=== PATIENT | male | born 1970 | race Caucasian/White ===

== ENCOUNTER 2019-12-06 16:15 | Inpatient (IN) ==
[2019-12-06] MEDS ORDERED: SODIUM CHLORIDE 0.9% 1000ML 1,000 ML IV ONE (17:02)
[2019-12-06] MEDS ORDERED: ONDANSETRON INJ 2 MG/ML 2 ML VIAL IV STA (17:04)
--- NOTE | 2019-12-06 17:09 | Emergency Department Note ---
ED Visit Note I assisted Dr. Rhodes in the care of this patient. Please see attending attestation. Sven Marie DO Resident, Family & Community Medicine, [facility] . Resident Activity Tracking Resident Involvement: Resident Care Provided Care Provided: Adult ED
[2019-12-06] MEDS ORDERED: CYCLOBENZAPRINE HCL 10 MG TAB PO STA (17:10)
[2019-12-06] MEDS ORDERED: LIDOCAINE 4% INH SOLN 4 ML BTL ONE (17:15)
--- NOTE | 2019-12-06 17:17 | Emergency Department Note ---
History of Present Illness General Chief complaint: Urinary Symptoms Stated complaint: POSSIBLE UTI, STOMACH CRAMPS, NAUSEA Time Seen by Provider: 12/06/19 16:45 Source: patient Mode of arrival: wheelchair Limitations: physical limitation History of Present Illness Maximum Pain Intensity: 4 This is a 49-year-old male who presents to the ED with a chief complaint of bloody possible urinary tract infection. 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 He does self-catheterization because of a neurogenic bladder related to his spinal cord injury. The patient states that he has experienced over the past couple of days some spasm in his abdomen and his urine appears darker than usual. He also reports an episode of vomiting and diarrhea this morning. The patient states that the last time he had a UTI, his abdomen was spasming. He states that he was given morphine and this constipated him for a long time. He is requesting something for muscle spasm. The patient has no other complaints at this time. The patient does report his last normal bowel movement was on Tuesday. He states that this is normal for him. Denies issues with constipation. Home Medications Home Medications Medication Instructions Recorded Confirmed Type bisacodyl [Dulcolax (bisacodyl)] 5 mg PO DAILY PRN 04/07/18 12/06/19 History calcium polycarbophil [FiberCon] 1,250 mg PO BID 04/07/18 12/06/19 History multivitamin 1 tab PO DAILY 04/07/18 12/06/19 History sennosides-docusate sodium [Senna 2 tab PO BID 07/14/18 12/06/19 History with Docusate Sodium] apixaban 5 mg tablet 5 mg PO BID #180 tab 06/25/19 12/06/19 Rx oxybutynin chloride 10 mg 10 mg PO BID #180 tab 12/04/19 12/06/19 Rx tablet,extended release 24 hr baclofen 20 mg PO BID 12/06/19 12/06/19 History Allergies Allergy/AdvReac Type Severity Reaction Status Date / Time Sulfa (Sulfonamide Allergy Mild Unknown Verified 12/06/19 18:05 Antibiotics) Past Med/Surg History Medical History BILL (acute kidney injury) (Resolved) Constipation (Resolved) Ground glass opacity present on imaging of lung (Chronic) History of DVT (deep vein thrombosis) (Chronic) Muscle spasm (Chronic) Neurogenic bladder (Chronic) Paraplegia (Chronic) Peripheral vascular disease (Chronic) SBO (small bowel obstruction) (Resolved) Sepsis (Resolved) Stage II pressure ulcer of buttock (Resolved) T5 spinal cord injury (Chronic) UTI (urinary tract infection) (Chronic) UTI (urinary tract infection) (Resolved) Surgical History History of back surgery Family History Other Medical history non-contributory Social History Preferred Language: Hebrew Communication Ability: Effective Visual Impairment: No Limitations Jacket Changer Required: No Beliefs That Will Affect Care: None marital status: Single Current Living Situation: Alone current occupational status: disabled Feels Safe at Home: Yes Smoking Status: Former smoker Tobacco Type: smokeless tobacco ; Cigarettes Per Day: 20 ; Second Hand Exposure: No ; Hx Alcohol Use: No Hx Substance Use: No Review of Systems A total of 10 systems reviewed and were otherwise negative Physical Exam Vital Signs: Vital Signs - 24 hr 12/06/19 16:20 12/06/19 18:20 Temperature 36.7 C Temperature Source Oral Pulse Rate 119 H Pulse Rate [Apical ] 90 Respiratory Rate 18 18 Respiratory Effort / Characteristics Non-Labored Sponta neous Respiratory Depth Normal Blood Pressure 100/73 Blood Pressure [Le ft Arm] 112/76 Blood Pressure Noni n 82 Blood Pressure Noni n [Left Arm] 88 Blood Pressure Pos ition Sitting Pulse Oximetry 97 98 Oxygen Delivery Me thod Room Air Room Air Sepsis Recent Feve r Within 48 Hours No Sepsis New/Unexpla ined Change in Men evon Status No Sepsis Action Take n by Nursing No Action Required Physical Exam: CONSTITUTIONAL/VITAL SIGNS: Reviewed / noted above. GENERAL: Non-toxic in appearance. INTEGUMENTARY: Warm, dry, and [place]. HEAD: Normocephalic. EYES: without scleral icterus or trauma. ENT/OROPHARYNX: clear and moist. LYMPHADENOPATHY/NECK: Is supple without lymphadenopathy or meningismus. RESPIRATORY: Lungs clear and equal. CARDIOVASCULAR: Regular rate and rhythm. GI/ABDOMEN: Soft, slightly distended and nontender. No organomegaly or pulsatile mass. No rebound or guarding. Normal bowel sounds. EXTREMITIES: Warm and well perfused. BACK: No CVA tenderness. NEUROLOGICAL: Intact without focal deficits. Chronic paraplegia. PSYCHIATRIC: normal affect. MUSCULOSKELETAL: Normally developed with good muscle tone. TRIAGE NURSING DOCUMENTATION REVIEWED. Course Administered Medications Ioversol (Optiray 320 100ml) 91 ml IV ONCE PRN PRN Reason: Interaction Checking Stop: 12/10/19 18:22 Last Admin: 12/06/19 18:23 Dose: 91 ml Documented by: [id number] Discontinued Medications Cyclobenzaprine HCl (Flexeril) 5 mg PO NOW STA Stop: 12/06/19 17:11 Last Admin: 12/06/19 17:31 Dose: 5 mg Documented by: [id number] Sodium Chloride (Nss 1000ml) 1,000 mls @ 999 mls/hr IV .Q1H1M ONE Stop: 12/06/19 18:02 Last Infusion: 12/06/19 18:35 Dose: 0 mls/hr Documented by: [id number] Admin: 12/06/19 17:31 Dose: 999 mls/hr Documented by: [id number] Ceftriaxone Sodium (Rocephin) 1,000 mg in 50 mls @ 100 mls/hr IV NOW STA Stop: 12/06/19 19:04 Last Admin: 12/06/19 18:39 Dose: 100 mls/hr Documented by: [id number] Ondansetron HCl (Zofran) 4 mg IV NOW STA Stop: 12/06/19 17:05 Last Admin: 12/06/19 17:31 Dose: 4 mg Documented by: [id number] Medical Decision Making Differential Diagnosis Differential considered: pancreatitis, hepatitis, acute cholecystitis, AAA, UTI, pyelonephritis, kidney stones, appendicitis, diverticulitis, shingles, bowel obstruction, mesenteric ischemia, intussusception,hernia, testicular torsion. Medical Records Attestation: I reviewed the patient's medical records. Home Medications Current Medication List: was personally reviewed by me Laboratory Data Attestation: I reviewed the patient's lab results. Result diagrams: 12/06/19 17:15 12/06/19 17:15 Lab Results 12/06/19 12/06/19 12/06/19 Range/Units 17:15 17:15 17:16 WBC 10.41 (4.8-10.8) K/uL RBC 4.69 L (4.7-6.1) M/uL Hgb 14.1 (14.0-18.0) g/dL Hct 39.1 L (42-52) % MCV 83.4 (80-100) fL MCH 30.1 (25-34) pg MCHC 36.1 H (32-36) g/dL RDW Std Deviation 41.4 (36.4-46.3) fL RDW Coeff of Shanice 13.7 (11.5-14.5) % Plt Count 242 (130-400) K/uL MPV 9.4 (7.4-10.4) fL Immature Gran % (Auto) 0.2 % Neut % (Auto) 82.1 % Lymph % (Auto) 11.9 % [place] % (Auto) 5.4 % Eos % (Auto) 0.3 % Baso % (Auto) 0.1 % Immature Gran # (Auto) 0.02 (0.00-0.02) K/uL Neut # (Auto) 8.55 H (1.4-6.5) K/uL Lymph # (Auto) 1.24 (1.2-3.4) K/uL [place] # (Auto) 0.56 (0.11-0.59) K/uL Eos # (Auto) 0.03 (0-0.5) K/uL Baso # (Auto) 0.01 (0-0.2) K/uL Sodium 136 (136-145) mmol/L Potassium 4.2 (3.5-5.1) mmol/L Chloride 98 (98-107) mmol/L Carbon Dioxide 31 (21-32) mmol/L Anion Gap 7.0 (3-11) BUN 20 H (7-18) mg/dl Creatinine 0.94 (0.6-1.4) mg/dl Est Cr Clr Drug Dosing Not Reportable Est GFR ( Amer) 108.4 Est GFR (Non-Af Amer) 93.5 BUN/Creatinine Ratio 21.7 H (10-20) Glucose 104 H (70-99) mg/dl Calcium 9.8 (8.5-10.1) mg/dl Total Bilirubin 1.3 H (0.2-1) mg/dl AST 17 (15-37) U/L ALT 26 (12-78) U/L Alkaline Phosphatase 76 (45-117) U/L Total Protein 7.9 (6.4-8.2) gm/dl Albumin 3.9 (3.4-5.0) gm/dl Globulin 4.0 (2.5-4.0) gm/dl Albumin/Globulin Ratio 1.0 (0.9-2) Urine Color Dark Yellow Urine Appearance Clear (Clear) Urine pH 5.5 (4.5-7.5) Ur Specific [place] 1.014 (1.000-1.030) Urine Protein Negative (Negative) Urine Glucose (UA) Negative (Negative) Urine Ketones Negative (Negative) Urine Blood 2+ H (Negative) Urine Nitrite Negative (Negative) Urine Bilirubin Negative (Negative) Urine Urobilinogen Negative (Negative) Ur Leukocyte Esterase 1+ H (Negative) Urine WBC (Auto) 10-30 H (0-5) /hpf Urine RBC (Auto) 5-10 H (0-4) /hpf U Hyaline Cast (Auto) 5-10 H (0-5) /lpf U Epithel Cells (Auto) 10-20 H (0-5) /lpf Urine Bacteria (Auto) Negative (Negative) Imaging Data Radiologist's Impression: CT scan of the abdomen and pelvis: IMPRESSION: 1. Dilated fluid-filled loops of small bowel throughout the abdomen and pelvis with transition point noted involving the distal ileum just proximal to the ileocecal valve is compatible with a least a partial small bowel obstruction likely secondary to small bowel adhesions or possibly a small internal hernia. 2. No pneumatosis or pneumoperitoneum. 3. Prostamegaly with urinary bladder wall thickening suggestive of chronic bladder outlet obstruction. Correlate with urinalysis to exclude cystitis. 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 Blood Pressure Blood Pressure Findings: Normal blood pressure MDM Narrative This is a 49-year-old male who presents to the ED with a chief complaint of bloody possible urinary tract infection. 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 He does self-catheterization because of a neurogenic bladder related to his spinal cord injury. The patient states that he has experienced over the past couple of days some spasm in his abdomen and his urine appears darker than usual. He also reports an episode of vomiting and diarrhea this morning. The patient states that the last time he had a UTI, his abdomen was spasming. He states that he was given morphine and this constipated him for a long time. He is requesting something for muscle spasm. The patient has no other complaints at this time. The patient does report his last normal bowel movement was on Tuesday. He states that this is normal for him. Denies issues with constipation. The patient's vital signs reveal tachycardia. His exam reveals a slightly distended abdomen. He is chronically paraplegic. He is in no distress. The patient's urine appears equivocal. He was empirically treated with IV Rocephin pending cultures. The patient's CBC and chemistry panel was unremarkable. A CT scan of the abdomen was performed reveals a partial small bowel obstruction likely related to some adhesions. There may also be an internal hernia. Because of the patient's symptoms, the patient will be seen by the hospitalist service for further inpatient evaluation and care. The patient was treated with IV Rocephin, p.o. cyclobenzaprine, IV Zofran and IV fluids. Prescription for antibiotics, pending culture. Impression & Plan SBO (small bowel obstruction) Discharge Plan Visit Data Chief Complaint: Urinary Symptoms Stated Complaint: POSSIBLE UTI, STOMACH CRAMPS, NAUSEA ED Provider: Jose Rhodes ED Midlevel Provider: Sven Marie Discharge Problem: SBO (small bowel obstruction) Patient Disposition: Being Evaluated by Hospitalist Forms Stand Alone Forms: [facility] Prescriptions Prescriptions: No Action Eliquis 5 mg tablet 5 mg PO BID Qty: 180 RF: 1 oxybutynin chloride 10 mg tablet extended release 24hr 10 mg PO BID Qty: 180 RF: 1 multivitamin Tablet 1 tab PO DAILY RF: 0 calcium polycarbophil [FiberCon] 625 mg Tablet 1,250 mg PO BID RF: 0 bisacodyl [Dulcolax (bisacodyl)] 5 mg Tablet,Delayed Release (Dr/Ec) 5 mg PO DAILY PRN (Reason: Constipation) RF: 0 sennosides-docusate sodium [Senna with Docusate Sodium] 8.6-50 mg Tablet 2 tab PO BID RF: 0 baclofen 20 mg tablet 20 mg PO BID RF: 0 Referrals Referrals: Viki Alvarado DO [Primary Care Provider] -
[2019-12-06 17:24] LABS: Basophils # (auto) 0.01 K/uL (0-0.2); Basophils % (auto) 0.1 %; Eosinophils # (auto) 0.03 K/uL (0-0.5); Eosinophils % (auto) 0.3 %; Hematocrit (blood only) 39.1 % (42-52); Hemoglobin 14.1 g/dL (14.0-18.0); Immature Granulocytes # (auto) 0.02 K/uL (0.00-0.02); Immature Granulocytes % (auto) 0.2 %; Lymphocytes # (auto) 1.24 K/uL (1.2-3.4); Lymphocytes % (auto) 11.9 %; Mean Corpuscular Hemoglobin 30.1 pg (25-34); Mean Corpuscular Hgb Conc 36.1 g/dL (32-36); Mean Corpuscular Volume 83.4 fL (80-100); Mean Platelet Volume 9.4 fL (7.4-10.4); Monocytes # (auto) 0.56 K/uL (0.11-0.59); Monocytes % (auto) 5.4 %; Neutrophils # (auto) 8.55 K/uL (1.4-6.5); Neutrophils % (auto) 82.1 %; Platelet Count 242 K/uL (130-400); RDW Coefficient of Variation 13.7 % (11.5-14.5); RDW Standard Deviation 41.4 fL (36.4-46.3); Red Blood Count 4.69 M/uL (4.7-6.1); White Blood Count 10.41 K/uL (4.8-10.8)
[2019-12-06 17:40] LABS: Appearance Urine Clear (Clear); Bacteria Urine Automated Negative (Negative); Bilirubin Urine Negative (Negative); Blood Urine 2+ (Negative); Color Urine Dark Yellow; Glucose Urine UA Negative (Negative); Ketones Urine Negative (Negative); Leukocyte Esterase Urine 1+ (Negative); Nitrite Urine Negative (Negative); Protein Urine Negative (Negative); Specific Gravity Urine 1.014 (1.000-1.030); Urobilinogen Urine Negative (Negative); pH Urine 5.5 (4.5-7.5)
[2019-12-06 17:42] LABS: Alanine Aminotransferase 26 U/L (12-78); Albumin Level 3.9 gm/dl (3.4-5.0); Aspartate Aminotransferase 17 U/L (15-37); BUN Creatinine Ratio 21.7 (10-20); Blood Urea Nitrogen 20 mg/dl (7-18); Calcium 9.8 mg/dl (8.5-10.1); Carbon Dioxide 31 mmol/L (21-32); Chloride 98 mmol/L (98-107); Est GFR (African American) 108.4; Est GFR (Non-African American) 93.5; Glucose 104 mg/dl (70-99); Potassium 4.2 mmol/L (3.5-5.1); Sodium 136 mmol/L (136-145)
[2019-12-06 17:44] LABS: Alkaline Phosphatase 76 U/L (45-117); Bilirubin,Total 1.3 mg/dl (0.2-1); Total Protein 7.9 gm/dl (6.4-8.2)
[2019-12-06] MEDS ORDERED: IOVERSOL 100ml IV PRN (18:23)
[2019-12-06] MEDS ORDERED: cefTRIAXone SODIUM 1,000 MG/50 ML BAG IV STA (18:35)
--- NOTE | 2019-12-06 18:57 | CT Scan Report ---
ABDOMEN AND PELVIS CT WITH IV CONTRAST CT DOSE: 313.87 mGy.cm HISTORY: Acute generalized abdominal pain with distention abd pain/distention TECHNIQUE: Multiaxial CT images of the abdomen and pelvis were performed following the IV administrat ion of 91 cc of Optiray 320, A dose lowering technique was utilized adhering to the principles of [place]. COMPARISON STUDY: CT abdomen and pelvis 06/03/2018 FINDINGS: Clear lung bases. No pneumatosis or pneumoperitoneum identified. Imaged inferior cardiac chambers are unremarkable. Spleen measures the upper limits of normal in size at 13 cm. The pancreas and adrenal glands are unremarkable. Contracted gallbladder. Unremarkable appearance of the liver. Patency of the hepatic and portal veins. 7 mm hypodensity of the inferior pole left kidney is too small to characte rize however suggests probable cyst. No ureteral calculi or obstructive uropathy. Mild to moderate wa ll thickening of the bladder with partial distention. 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 Prostate is mildly enlarged. Aort a is unremarkable. Infrarenal IVC filter. No adenopathy. Hyperdense foci layering within the stomach are suggestive of pills fragments. Mild to moderate gastr ic distention with air-fluid level. Additional scattered air-fluid levels are noted throughout the sm all bowel with mild small bowel dilation measuring up to 3.3 cm. Transition point is noted within the terminal ileum with focal narrowing and mild twisting of the ileum seen on image 340 series 3 just p roximal to the ileocecal valve. Wall thickening with partial distention of the sigmoid colon. There i s trace nonspecific free fluid within the dependent pelvis. The majority of the large bowel is partia lly decompressed. Mild fecal retention. The appendix is not definitively seen. Soft tissues are unrem arkable. Demineralized appearance of the bones. No suspicious bone lesions. Partially imaged thoracic spinal fusion hardware. IMPRESSION: 1. Dilated fluid-filled loops of small bowel throughout the abdomen and pelvis with transition point noted involving the distal ileum just proximal to the ileocecal valve is compatible with a least a pa rtial small bowel obstruction likely secondary to small bowel adhesions or possibly a small internal hernia. 2. No pneumatosis or pneumoperitoneum. 3. Prostamegaly with urinary bladder wall thickening suggestive of chronic bladder outlet obstruction . Correlate with urinalysis to exclude cystitis. 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 4. Additional findings as above. ACT 112: Negative or not required by law. The above report was generated using voice recognition software. It may contain grammatical, syntax o r spelling errors. Electronically signed by: Mitchell Gregg M.D. 12/06/2019 6:56 PM
--- NOTE | 2019-12-06 20:44 | History & Physical Report ---
Date of Service December 06, 2019 Assessment & Plan (1) SBO (small bowel obstruction): Peyman Nolan is a 49y/o M w/ PMH with PMH of T5 paralysis, neurogenic bladder; who presented to the ED with a chief complaint of bloody possible urinary tract infection. Small bowel obstruction: - CT abd/pelvis: 1. Dilated fluid-filled loops of small bowel throughout the abdomen and pelvis with transition point noted involving the distal ileum just proximal to the ileocecal valve is compatible with a least a partial small bowel obstruction likely secondary to small bowel adhesions or possibly a small internal hernia. 2. No pneumatosis or pneumoperitoneum. 3. Prostamegaly with urinary bladder wall thickening suggestive of chronic bladder outlet obstruction. Correlate with urinalysis to exclude cystitis. 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 4. Additional findings as above. - will make NPO for bowel rest - failed NG placement in ED, consider re-attempting in AM if no improvement in symptoms - continue Cefepime for potential gastroenteritis complication Urinary tract infection: - Urinalysis unimpressive: demonstrated 2+ blood, 1+ Leuk Est, negative nitrites, negative bacteria Neurogenic bladder: - will hold home oral medications at this time - joseph catheter placed Diet: NPO DVT ppx: Lovenox SQ Code: DNR/DNI (2) UTI (urinary tract infection): (3) Neurogenic bladder: History of Present Illness Primary Care Provider: Viki Alvarado DO Peyman Nolan is a 49y/o M w/ PMH with PMH of T5 paralysis, neurogenic bladder; who presented to the ED with a chief complaint of bloody possible urinary tract infection. He does self-catheterization because of a neurogenic bladder related to his spinal cord injury. The patient states that he has experienced over the past couple of days some spasm/tightness in his abdomen and his urine appears darker than usual. Over this time he has had two episodes of nausea and vomiting, and as a result has reduced the amount that he has eaten since Tuesday. Denies abdominal pain as he does not have sensation below his chest. Last bowel movement was three days ago, which he has had sporadically since he was paralyzed. Denies fever, chills, cough, and shortness of breath. Allergies Allergy/AdvReac Type Severity Reaction Status Date / Time Sulfa (Sulfonamide Allergy Mild Unknown Verified 12/06/19 18:05 Antibiotics) Home Medications Home Medications Medication Instructions Recorded Confirmed Type bisacodyl [Dulcolax (bisacodyl)] 5 mg PO DAILY PRN 04/07/18 12/06/19 History calcium polycarbophil [FiberCon] 1,250 mg PO BID 04/07/18 12/06/19 History multivitamin 1 tab PO DAILY 04/07/18 12/06/19 History sennosides-docusate sodium [Senna 2 tab PO BID 07/14/18 12/06/19 History with Docusate Sodium] apixaban 5 mg tablet 5 mg PO BID #180 tab 06/25/19 12/06/19 Rx oxybutynin chloride 10 mg 10 mg PO BID #180 tab 12/04/19 12/06/19 Rx tablet,extended release 24 hr baclofen 20 mg PO BID 12/06/19 12/06/19 History Past Med/Surg History Medical History BILL (acute kidney injury) (Resolved) Constipation (Resolved) Ground glass opacity present on imaging of lung (Chronic) History of DVT (deep vein thrombosis) (Chronic) Muscle spasm (Chronic) Neurogenic bladder (Chronic) Paraplegia (Chronic) Peripheral vascular disease (Chronic) SBO (small bowel obstruction) (Resolved) Sepsis (Resolved) Stage II pressure ulcer of buttock (Resolved) T5 spinal cord injury (Chronic) UTI (urinary tract infection) (Chronic) UTI (urinary tract infection) (Resolved) Surgical History History of back surgery Family History Other Medical history non-contributory Social History Preferred Language: Telugu Communication Ability: Effective Visual Impairment: No 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 Beliefs That Will Affect Care: None marital status: Single Current Living Situation: Alone current occupational status: disabled Other Information That Helps Us Care for You: No Feels Safe at Home: Yes Safety Concerns: Feels Safe At This Time Smoking Status: Never smoker Tobacco Type: smokeless tobacco ; Cigarettes Per Day: 20 ; Do You Dip or Chew Tobacco: Yes ; Second Hand Exposure: No ; Tobacco Cessation Education Requested by Patient: No Hx Alcohol Use: No Hx Substance Use: No Review of Systems Review of Systems: All systems reviewed & are unremarkable except as noted in HPI & below Physical Exam Constitutional: WD/WN, vitals as above Eyes: PERRL, conjunctivae normal, anicteric sclerae ENMT: external ear and nose normal, oropharynx normal Neck: normal visual inspection Respiratory: normal respiratory effort, lungs clear to auscultation Cardiovascular: Rate/Rhythm: regular rate and regular rhythm Heart Sounds: normal S1 and normal S2; no gallop, no murmur and no cardiac rub Vessels: no JVD Extremities: no edema Gastrointestinal (Abdomen): Inspection/Auscultation: abdomen not distended Percussion/Palpation: + abdomen tender and + guarding; abdomen not rigid Musculoskeletal: Extremities: no cyanosis and no clubbing Skin: no rashes, warm and dry Psychiatric: A+Ox3, euthymic affect Genitourinary: no CVA tenderness Lymphatic: no cervical or axillary lymphadenopathy Results & Data Results & Data ([facility]) Vital Signs (Past 12 Hours) Vital Signs Temp Pulse Pulse Resp BP BP Pulse Ox 12/06/19 18:20 90 18 112/76 98 12/06/19 16:20 36.7 C 119 H 18 100/73 97 Laboratory Results 12/06/19 12/06/19 12/06/19 Range/Units 17:16 17:15 17:15 WBC 10.41 (4.8-10.8) K/uL RBC 4.69 L (4.7-6.1) M/uL Hgb 14.1 (14.0-18.0) g/dL Hct 39.1 L (42-52) % MCV 83.4 (80-100) fL MCH 30.1 (25-34) pg MCHC 36.1 H (32-36) g/dL RDW Std Deviation 41.4 (36.4-46.3) fL RDW Coeff of Shanice 13.7 (11.5-14.5) % Plt Count 242 (130-400) K/uL MPV 9.4 (7.4-10.4) fL Immature Gran % (Auto) 0.2 % Neut % (Auto) 82.1 % Lymph % (Auto) 11.9 % [place] % (Auto) 5.4 % Eos % (Auto) 0.3 % Baso % (Auto) 0.1 % Immature Gran # (Auto) 0.02 (0.00-0.02) K/uL Neut # (Auto) 8.55 H (1.4-6.5) K/uL Lymph # (Auto) 1.24 (1.2-3.4) K/uL [place] # (Auto) 0.56 (0.11-0.59) K/uL Eos # (Auto) 0.03 (0-0.5) K/uL Baso # (Auto) 0.01 (0-0.2) K/uL Sodium 136 (136-145) mmol/L Potassium 4.2 (3.5-5.1) mmol/L Chloride 98 (98-107) mmol/L Carbon Dioxide 31 (21-32) mmol/L Anion Gap 7.0 (3-11) BUN 20 H (7-18) mg/dl Creatinine 0.94 (0.6-1.4) mg/dl Est Cr Clr Drug Dosing Not Reportable Est GFR ( Amer) 108.4 Est GFR (Non-Af Amer) 93.5 BUN/Creatinine Ratio 21.7 H (10-20) Glucose 104 H (70-99) mg/dl Calcium 9.8 (8.5-10.1) mg/dl Total Bilirubin 1.3 H (0.2-1) mg/dl AST 17 (15-37) U/L ALT 26 (12-78) U/L Alkaline Phosphatase 76 (45-117) U/L Total Protein 7.9 (6.4-8.2) gm/dl Albumin 3.9 (3.4-5.0) gm/dl Globulin 4.0 (2.5-4.0) gm/dl Albumin/Globulin Ratio 1.0 (0.9-2) Urine Color Dark Yellow Urine Appearance Clear (Clear) Urine pH 5.5 (4.5-7.5) Ur Specific [place] 1.014 (1.000-1.030) Urine Protein Negative (Negative) Urine Glucose (UA) Negative (Negative) Urine Ketones Negative (Negative) Urine Blood 2+ H (Negative) Urine Nitrite Negative (Negative) Urine Bilirubin Negative (Negative) Urine Urobilinogen Negative (Negative) Ur Leukocyte Esterase 1+ H (Negative) Urine WBC (Auto) 10-30 H (0-5) /hpf Urine RBC (Auto) 5-10 H (0-4) /hpf U Hyaline Cast (Auto) 5-10 H (0-5) /lpf U Epithel Cells (Auto) 10-20 H (0-5) /lpf Urine Bacteria (Auto) Negative (Negative) Medications Administered Current Inpatient Medications Ioversol (Optiray 320 100ml) 91 ml IV ONCE PRN PRN Reason: Interaction Checking Stop: 12/10/19 18:22 Last Admin: 12/06/19 18:23 Dose: 91 ml Documented by: Supervising Physician Co-Signing Physician Notes Attending addendum: I have physically seen this patient, have supervised the medical residents activities, and agree with the H&P unless as otherwise noted. Assessment and Plan: Partial small bowel obstruction- Full admission N.p.o. IV fluids Zofran 4 mg IV every 6 hours PRN. Famotidine 20 mg IV every 12 hours Cefepime 1 g IV every 8 hours Surgical consult BPH with bladder outlet obstruction/LUTS- Follow urine culture and sensitivity. Cefepime as noted above. IV fluids as noted above. Joseph catheter for now. Remainder of orders and notations as noted. Resident Activity Tracking Resident Involvement: Resident Care Provided Care Provided: Adult Hospital Medicine (1) UTI (urinary tract infection) Hematuria presence: with hematuria Urinary tract infection type: site unspecified Qualified Code(s): N39.0 - Urinary tract infection, site not specified; R31.9 - Hematuria, unspecified
--- NOTE | 2019-12-06 22:01 | XRay Report ---
KUB HISTORY: Status post placement of an enteric tube NG tube placement COMPARISON: CT abdomen and pelvis of same day FINDINGS: Multiple dilated loops of small bowel redemonstrated. No enteric tube is noted along the ex pected gastrointestinal tract. Indeterminate catheter projects over the lateral left chest. Lung fiel ds are clear. Posterior interbody kayla and screw fusion of the thoracic spine. No renal calculi. No u reteral calculi. No pneumoperitoneum or pneumatosis. No fracture. IMPRESSION: 1. No definite enteric tube identified. 2. A catheter is noted projecting over the lateral left chest. ACT 112: Negative or not required by law. The above report was generated using voice recognition software. It may contain grammatical, syntax o r spelling errors. Electronically signed by: Mitchell Gregg M.D. 12/06/2019 9:59 PM
[2019-12-06] MEDS ORDERED: ONDANSETRON INJ 2 MG/ML 2 ML VIAL IV PRN (22:07)
[2019-12-06] MEDS ORDERED: PATIENT'S HEIGHT AND WEIGHT NEEDED SCH (22:30)
[2019-12-07] MEDS ORDERED: LORazepam 0.25 MG/0.5 ML VIAL IV ONE (00:05)
[2019-12-07] MEDS: CEFEPIME 2,000 MG in SYRINGE 7.5 ML IV SCH ×2 (00:28→10:57)
[2019-12-07 07:36] LABS: Basophils # (auto) 0.01 K/uL (0-0.2); Basophils % (auto) 0.1 %; Eosinophils # (auto) 0.12 K/uL (0-0.5); Eosinophils % (auto) 1.8 %; Hematocrit (blood only) 34.1 % (42-52); Immature Granulocytes # (auto) 0.02 K/uL (0.00-0.02); Immature Granulocytes % (auto) 0.3 %; Lymphocytes # (auto) 1.28 K/uL (1.2-3.4); Lymphocytes % (auto) 18.9 %; Mean Corpuscular Hemoglobin 29.8 pg (25-34); Mean Corpuscular Hgb Conc 35.2 g/dL (32-36); Mean Corpuscular Volume 84.6 fL (80-100); Mean Platelet Volume 9.5 fL (7.4-10.4); Monocytes # (auto) 0.48 K/uL (0.11-0.59); Monocytes % (auto) 7.1 %; Neutrophils # (auto) 4.88 K/uL (1.4-6.5); Neutrophils % (auto) 71.8 %; Platelet Count 180 K/uL (130-400); RDW Coefficient of Variation 13.9 % (11.5-14.5); RDW Standard Deviation 43.2 fL (36.4-46.3); Red Blood Count 4.03 M/uL (4.7-6.1); White Blood Count 6.79 K/uL (4.8-10.8)
[2019-12-07] MEDS: ENOXAPARIN INJ 40 MG/0.4 ML SYR SQ SCH (08:07)
[2019-12-07 08:14] LABS: BUN Creatinine Ratio 22.7 (10-20); Calcium 8.8 mg/dl (8.5-10.1); Creatinine Clr Calc Pharmacy 114.7 ml/min; Est GFR (African American) 123.1; Est GFR (Non-African American) 106.2; Potassium 3.9 mmol/L (3.5-5.1)
[2019-12-07] MEDS: SODIUM CHLORIDE 0.9% 1000ML 1,000 ML IV SCH ×2 (08:40→20:04)
--- NOTE | 2019-12-07 13:28 | History & Physical Report ---
Date of Service December 07, 2019 Assessment & Plan (1) SBO (small bowel obstruction): 49 yr old male paraplegic with symptoms/ imaging again suggestive of small bowel obstruction vs ileus/ delayed transit. If develops further nausea/ vomiting, would recommend ng decompression. If not, bowel rest and IVF resuscitation. Once regains bowel function, OK to slowly advance diet. Given that this is his second episode (first 06/04), should avoid/ minimize constipating meds as much as feasibly possible. No need for surgical intervention currently. Will follow. Present on Admission?: Yes (2) Paraplegia: Admission and Anticipated Discharge Date Admission Date: December 06, 2019 History of Present Illness Chief Complaint: nausea and vomiting Primary Care Provider: Viki Alvarado, Asked to see this 49 yr old man with PMH of T5 paralysis, neurogenic bladder and prior history of SBO vs ileus in 05/2018 who presented to the ED with a chief complaint of bloody possible urinary tract infection. He does self- catheterization because of a neurogenic bladder related to his spinal cord injury. Over the past few days, has noticed some spasm/ tightness in abdomen, intermittent nausea, darker urine. Has not been eating as much since Tuesday. Had a bowel movement on Tuesday, a looser one Tuesday and another last night. Unclear if there was any substance to the stool last night. Does not have abdominal pain as has no sensation below T5. He is hungry and has not had any nausea in the last 1-2 days. In 05/2018, admitted with SBO on CT scan but clinical picture more c/w ileus. Seen by Dr. Tilley - AIME ultimately traveled to colon but did show markedly delayed transit. Did need a ng tube during that admission. Symptoms resolved conservatively. No prior abdominal operations. Allergies Allergy/AdvReac Type Severity Reaction Status Date / Time Sulfa (Sulfonamide Allergy Mild Unknown Verified 12/06/19 18:05 Antibiotics) Home Medications Home Medications Medication Instructions Recorded Confirmed Type bisacodyl [Dulcolax (bisacodyl)] 5 mg PO DAILY PRN 04/07/18 12/06/19 History calcium polycarbophil [FiberCon] 1,250 mg PO BID 04/07/18 12/06/19 History multivitamin 1 tab PO DAILY 04/07/18 12/06/19 History sennosides-docusate sodium [Senna 2 tab PO BID 07/14/18 12/06/19 History with Docusate Sodium] apixaban 5 mg tablet 5 mg PO BID #180 tab 06/25/19 12/06/19 Rx oxybutynin chloride 10 mg 10 mg PO BID #180 tab 12/04/19 12/06/19 Rx tablet,extended release 24 hr baclofen 20 mg PO BID 12/06/19 12/06/19 History Past Med/Surg History Medical History BILL (acute kidney injury) (Resolved) Constipation (Resolved) Ground glass opacity present on imaging of lung (Chronic) History of DVT (deep vein thrombosis) (Chronic) Muscle spasm (Chronic) Neurogenic bladder (Chronic) Paraplegia (Chronic) Peripheral vascular disease (Chronic) SBO (small bowel obstruction) (Resolved) Sepsis (Resolved) Stage II pressure ulcer of buttock (Resolved) T5 spinal cord injury (Chronic) UTI (urinary tract infection) (Chronic) UTI (urinary tract infection) (Resolved) Surgical History History of back surgery Family History Other Medical history non-contributory Social History Preferred Language: Italian Communication Ability: Effective Visual Impairment: No Limitations Publication Editor Required: No Beliefs That Will Affect Care: None marital status: Single Current Living Situation: Alone current occupational status: disabled Other Information That Helps Us Care for You: No Feels Safe at Home: Yes Safety Concerns: Feels Safe At This Time Smoking Status: Never smoker Tobacco Type: smokeless tobacco ; Cigarettes Per Day: 20 ; Do You Dip or Chew Tobacco: Yes ; Second Hand Exposure: No ; Tobacco Cessation Education Requested by Patient: No Hx Alcohol Use: No Hx Substance Use: No Review of Systems Review of Systems: All systems reviewed & are unremarkable except as noted in HPI & below Genitourinary: + problem reported (urine darker, some blood in it on self cath) Musculoskeletal: T5 paraplegic Physical Exam Constitutional: WD/WN, vitals as above Respiratory: normal respiratory effort, lungs clear to auscultation Cardiovascular: RRR, no murmur, no edema Gastrointestinal (Abdomen): Inspection/Auscultation: abdomen normal to inspection and normal bowel sounds; abdomen not distended Percussion/Palpation: abdomen soft; abdomen nontender no hernias or incisions Neurologic: T5 paraplegic Psychiatric: A+Ox3, euthymic affect Results & Data Results & Data ([facility]) Vital Signs (Past 12 Hours) Vital Signs Temp Pulse Resp BP Pulse Ox 12/07/19 07:16 36.7 C 86 16 125/73 98 Laboratory Results Abnormal lab results 12/06/19 12/06/19 12/06/19 Range/Units 17:15 17:15 17:16 RBC 4.69 L (4.7-6.1) M/uL Hgb (14.0-18.0) g/dL Hct 39.1 L (42-52) % MCHC 36.1 H (32-36) g/dL Neut # (Auto) 8.55 H (1.4-6.5) K/uL BUN 20 H (7-18) mg/dl BUN/Creatinine Ratio 21.7 H (10-20) Glucose 104 H (70-99) mg/dl Total Bilirubin 1.3 H (0.2-1) mg/dl Urine Blood 2+ H (Negative) Ur Leukocyte Esterase 1+ H (Negative) Urine WBC (Auto) 10-30 H (0-5) /hpf Urine RBC (Auto) 5-10 H (0-4) /hpf U Hyaline Cast (Auto) 5-10 H (0-5) /lpf U Epithel Cells (Auto) 10-20 H (0-5) /lpf 12/07/19 12/07/19 Range/Units 06:58 06:58 RBC 4.03 L (4.7-6.1) M/uL Hgb 12.0 L (14.0-18.0) g/dL Hct 34.1 L (42-52) % MCHC (32-36) g/dL Neut # (Auto) (1.4-6.5) K/uL BUN (7-18) mg/dl BUN/Creatinine Ratio 22.7 H (10-20) Glucose (70-99) mg/dl Total Bilirubin (0.2-1) mg/dl Urine Blood (Negative) Ur Leukocyte Esterase (Negative) Urine WBC (Auto) (0-5) /hpf Urine RBC (Auto) (0-4) /hpf U Hyaline Cast (Auto) (0-5) /lpf U Epithel Cells (Auto) (0-5) /lpf Diagnostic Findings FINDINGS: Clear lung bases. No pneumatosis or pneumoperitoneum identified. Imaged inferior cardiac chambers are unremarkable. Spleen measures the upper limits of normal in size at 13 cm. The pancreas and adrenal glands are unremarkable. Contracted gallbladder. Unremarkable appearance of the liver. Patency of the hepatic and portal veins. 7 mm hypodensity of the inferior pole left kidney is too small to characterize however suggests probable cyst. No ureteral calculi or obstructive uropathy. Mild to moderate wall thickening of the bladder with partial distention. 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 Prostate is mildly enlarged. Aorta is unremarkable. Infrarenal IVC filter. No adenopathy. Hyperdense foci layering within the stomach are suggestive of pills fragments. Mild to moderate gastric distention with air-fluid level. Additional scattered air-fluid levels are noted throughout the small bowel with mild small bowel dilation measuring up to 3.3 cm. Transition point is noted within the terminal ileum with focal narrowing and mild twisting of the ileum seen on image 340 series 3 just proximal to the ileocecal valve. Wall thickening with partial distention of the sigmoid colon. There is trace nonspecific free fluid within the dependent pelvis. The majority of the large bowel is partially decompressed. Mild fecal retention. The appendix is not definitively seen. Soft tissues are unremarkable. Demineralized appearance of the bones. No suspicious bone lesions. Partially imaged thoracic spinal fusion hardware. IMPRESSION: 1. Dilated fluid-filled loops of small bowel throughout the abdomen and pelvis with transition point noted involving the distal ileum just proximal to the ileocecal valve is compatible with a least a partial small bowel obstruction likely secondary to small bowel adhesions or possibly a small internal hernia. 2. No pneumatosis or pneumoperitoneum. 3. Prostamegaly with urinary bladder wall thickening suggestive of chronic bladder outlet obstruction. Correlate with urinalysis to exclude cystitis. 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 4. Additional findings as above.
--- NOTE | 2019-12-07 15:16 | Family Medicine Progress Note ---
Date of Service December 07, 2019 Assessment & Plan (1) SBO (small bowel obstruction): 49-year-old male was admitted on 06 Dec 2019 for SBO. Patients initial concern was for possible UTI. Small bowel obstruction: Patient c/o abdominal spasms in past couple days. Single episode N/V before admit. Last BM on 21May. CT a/p noted likely SBO secondary to small bowel adhesions or possibly a small internal hernia. Transition point at the distal ileum. Made NPO. Admit team attempted NGT wi thout success. Given flexeril x 1 for spasm. Has Zofran prn. - Seen by general surgery (see note). Plan for monitoring, awaiting return of bowel function, IVF for now. Try to avoid constipating meds. Neurogenic bladder, T5 spinal cord injury (2001), paraplegia: Does self-cath at home. Admit UA positive for WBC, RBC, casts, and Epis. Urine culture showed no growth. In ED, given single dose ceftriaxone. Admitted on cefepime. Jensen catheter placed. - No current evidence of an active infection, so stopped antibiotics. - Held home PO baclofen, dulcolax, Fibercon, oxybutynin, senna/docusate on admit while NPO. - Recommended he have follow-up with a urologist given his urinalysis findings of microscopic hematuria. This can be arranged through his primary care provider. Incidental CT a/p finding (can be evaluated as an outpatient): - Prostatomegaly. 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 - Possible left kidney cyst: 7 mm hypodensity. Ongoing medical issues: - Prior DVT: Had IVC filter placed around 2001. Held home apixiban 5 mg BID while NPO. --- Consider outpatient change to 2.5 mg BID dosing which would be the VTE prophylaxis dose. - Anemia: Admit Hb 12.0, MCV 84. Comparisons around 10-12. No evidence of acute bleeding. - PMH buttock pressure ulcer: Patient states not presently an issue. - Prior spinal fusion. Chronic groundglass opacity on lung imaging. Code status: DNR/DNI. Diet: NPO. On NS at 80 mL/hr. DVT prophy: On Lovenox 40 q day. Held home apixiban while NPO. PT/OT: Deferred. Disbo: Admitted to med surg. Lives at home alone. (2) Neurogenic bladder: (3) T5 spinal cord injury: (4) Paraplegia: (5) Enlarged prostate: (6) Left kidney mass: (7) History of DVT (deep vein thrombosis): (8) Anemia: Admission and Anticipated Discharge Date Admission Date: December 06, 2019 Supervising Physician Co-Signing Physician Notes I personally examined the patient and verified all camacho points of history and exam, discussed case, and agree with decision making with Dr. Pringle with the following additions/exceptions: Pt denied any nausea or vomiting for me, had a BM this AM. No longer having spasms of abdomen as before. Urine appears clearer than previously described. Pt also would like me to examine his scrotum as he has felt a small mobile ball- like structure that moves on both sides of scrotum for years and doesn't know what it is. Vitals reviewed NAD, AAOx3 Anicteric sclerae RRR no mgr CTAB no wcr ABd +BS soft NT, mild right sided distension, nonrigid Ext atrophy, flaccid SKin-multiple small abrasions/scratches on legs : testicles no masses, vas deferans palpated bilat and no masses, did palpate a very small 5 mm mobile rubbery mass in left hemiscrotum 49 yo male with T5 paraplegia, here with PSBO/ileus, N/V, UTI ruled out. -plan outlined as above -check pelvis xray for scrotal FB =continue fluids -observe with serial abdominal exams NGT if worsening distension or N/V Subjective Spoke with patient earlier this morning. Found him resting comfortably in bed. He recounted his HPI and stated that, although he has no physical feeling below T5, more with his hands he had the feeling that his abdomen was tense. He says that seem feeling remains this morning. Otherwise, he denies any interim nausea or vomiting since admission. No known recent fevers. Last bowel movement yesterday evening. Otherwise denies any particular concerns. - As background, patient says he had his IVC filter placed at the time of his initial accident around 2001. - Regarding his abnormal urinalysis, patient says he has never seen a urologist in the past. Review of Systems Review of Systems: Per HPI as above. Physical Exam Physical Exam: General Appearance: Awake, alert & oriented, comfortable in general, NAD. CV: +S1S2 RRR, no murmur. Pulm: Clear to auscultation throughout. Abdomen: +BS, soft, non-distended. Positive mild guarding. Jensen catheter in place. Extremities: There is some chronic bilateral lower extremity (shins distally) skin changes that do not appear infected. Neuro: T5 and distal paraplegia. No gross deficits in upper extremities. Results & Data ([facility]) Vital Signs (Past 12 Hours) Vital Signs Temp Pulse Resp BP Pulse Ox 12/07/19 07:16 36.7 C 86 16 125/73 98 Laboratory Results 12/07/19 12/07/19 12/06/19 Range/Units 06:58 06:58 17:16 WBC 6.79 (4.8-10.8) K/uL RBC 4.03 L (4.7-6.1) M/uL Hgb 12.0 L (14.0-18.0) g/dL Hct 34.1 L (42-52) % MCV 84.6 (80-100) fL MCH 29.8 (25-34) pg MCHC 35.2 (32-36) g/dL RDW Std Deviation 43.2 (36.4-46.3) fL RDW Coeff of Shanice 13.9 (11.5-14.5) % Plt Count 180 (130-400) K/uL MPV 9.5 (7.4-10.4) fL Immature Gran % (Auto) 0.3 % Neut % (Auto) 71.8 % Lymph % (Auto) 18.9 % [place] % (Auto) 7.1 % Eos % (Auto) 1.8 % Baso % (Auto) 0.1 % Immature Gran # (Auto) 0.02 (0.00-0.02) K/uL Neut # (Auto) 4.88 (1.4-6.5) K/uL Lymph # (Auto) 1.28 (1.2-3.4) K/uL [place] # (Auto) 0.48 (0.11-0.59) K/uL Eos # (Auto) 0.12 (0-0.5) K/uL Baso # (Auto) 0.01 (0-0.2) K/uL Sodium 139 (136-145) mmol/L Potassium 3.9 (3.5-5.1) mmol/L Chloride 106 (98-107) mmol/L Carbon Dioxide 25 (21-32) mmol/L Anion Gap 8.0 (3-11) BUN 17 (7-18) mg/dl Creatinine 0.75 (0.6-1.4) mg/dl Est Cr Clr Drug Dosing 114.7 Est GFR ( Amer) 123.1 Est GFR (Non-Af Amer) 106.2 BUN/Creatinine Ratio 22.7 H (10-20) Glucose 82 (70-99) mg/dl Calcium 8.8 (8.5-10.1) mg/dl Total Bilirubin (0.2-1) mg/dl AST (15-37) U/L ALT (12-78) U/L Alkaline Phosphatase (45-117) U/L Total Protein (6.4-8.2) gm/dl Albumin (3.4-5.0) gm/dl Globulin (2.5-4.0) gm/dl Albumin/Globulin Ratio (0.9-2) Urine Color Dark Yellow Urine Appearance Clear (Clear) Urine pH 5.5 (4.5-7.5) Ur Specific [place] 1.014 (1.000-1.030) Urine Protein Negative (Negative) Urine Glucose (UA) Negative (Negative) Urine Ketones Negative (Negative) Urine Blood 2+ H (Negative) Urine Nitrite Negative (Negative) Urine Bilirubin Negative (Negative) Urine Urobilinogen Negative (Negative) Ur Leukocyte Esterase 1+ H (Negative) Urine WBC (Auto) 10-30 H (0-5) /hpf Urine RBC (Auto) 5-10 H (0-4) /hpf U Hyaline Cast (Auto) 5-10 H (0-5) /lpf U Epithel Cells (Auto) 10-20 H (0-5) /lpf Urine Bacteria (Auto) Negative (Negative) 12/06/19 12/06/19 Range/Units 17:15 17:15 WBC 10.41 (4.8-10.8) K/uL RBC 4.69 L (4.7-6.1) M/uL Hgb 14.1 (14.0-18.0) g/dL Hct 39.1 L (42-52) % MCV 83.4 (80-100) fL MCH 30.1 (25-34) pg MCHC 36.1 H (32-36) g/dL RDW Std Deviation 41.4 (36.4-46.3) fL RDW Coeff of Shanice 13.7 (11.5-14.5) % Plt Count 242 (130-400) K/uL MPV 9.4 (7.4-10.4) fL Immature Gran % (Auto) 0.2 % Neut % (Auto) 82.1 % Lymph % (Auto) 11.9 % [place] % (Auto) 5.4 % Eos % (Auto) 0.3 % Baso % (Auto) 0.1 % Immature Gran # (Auto) 0.02 (0.00-0.02) K/uL Neut # (Auto) 8.55 H (1.4-6.5) K/uL Lymph # (Auto) 1.24 (1.2-3.4) K/uL [place] # (Auto) 0.56 (0.11-0.59) K/uL Eos # (Auto) 0.03 (0-0.5) K/uL Baso # (Auto) 0.01 (0-0.2) K/uL Sodium 136 (136-145) mmol/L Potassium 4.2 (3.5-5.1) mmol/L Chloride 98 (98-107) mmol/L Carbon Dioxide 31 (21-32) mmol/L Anion Gap 7.0 (3-11) BUN 20 H (7-18) mg/dl Creatinine 0.94 (0.6-1.4) mg/dl Est Cr Clr Drug Dosing Not Reportable Est GFR ( Amer) 108.4 Est GFR (Non-Af Amer) 93.5 BUN/Creatinine Ratio 21.7 H (10-20) Glucose 104 H (70-99) mg/dl Calcium 9.8 (8.5-10.1) mg/dl Total Bilirubin 1.3 H (0.2-1) mg/dl AST 17 (15-37) U/L ALT 26 (12-78) U/L Alkaline Phosphatase 76 (45-117) U/L Total Protein 7.9 (6.4-8.2) gm/dl Albumin 3.9 (3.4-5.0) gm/dl Globulin 4.0 (2.5-4.0) gm/dl Albumin/Globulin Ratio 1.0 (0.9-2) Urine Color Urine Appearance (Clear) Urine pH (4.5-7.5) Ur Specific [place] (1.000-1.030) Urine Protein (Negative) Urine Glucose (UA) (Negative) Urine Ketones (Negative) Urine Blood (Negative) Urine Nitrite (Negative) Urine Bilirubin (Negative) Urine Urobilinogen (Negative) Ur Leukocyte Esterase (Negative) Urine WBC (Auto) (0-5) /hpf Urine RBC (Auto) (0-4) /hpf U Hyaline Cast (Auto) (0-5) /lpf U Epithel Cells (Auto) (0-5) /lpf Urine Bacteria (Auto) (Negative) Medications Administered Current Inpatient Medications Enoxaparin Sodium (Lovenox) 40 mg SQ QAM [facility] Stop: 01/06/20 08:59 Last Admin: 12/07/19 08:07 Dose: 40 mg Documented by: Sodium Chloride (Nss 1000ml) 1,000 mls @ 80 mls/hr IV .[id number] [facility] Stop: 01/06/20 08:29 Last Admin: 12/07/19 08:40 Dose: 80 mls/hr Documented by: Ioversol (Optiray 320 100ml) 91 ml IV ONCE PRN PRN Reason: Interaction Checking Stop: 12/10/19 18:22 Last Admin: 12/06/19 18:23 Dose: 91 ml Documented by: Ondansetron HCl (Zofran) 4 mg IV Q6H PRN PRN Reason: Nausea Stop: 01/05/20 22:06 Resident Activity Tracking Resident Involvement: Resident Care Provided Care Provided: Adult Hospital Medicine
--- NOTE | 2019-12-07 17:18 | Billing Data ---
Date of Service December 07, 2019 Coding Level of Care Code 67921 Subseq Hosp Care Lvl 3
--- NOTE | 2019-12-07 19:39 | XRay Report ---
XR hips JUAN MIGUEL 1v w pelvis HISTORY: 49 years-old Male scrotal foreign body possible foreign body of the scrotum COMPARISON: Pelvis and hip radiograph 07/14/2018, CT abdomen pelvis 12/05/2017 TECHNIQUE: AP view of the pelvis with 2 views of the bilateral hips. FINDINGS: A catheter projects over the midline pelvis. No opaque foreign body, acute fracture or dislocation. M ild osteoarthritis of the bilateral hips. Partially imaged IVC filter. Degenerative changes of the elena mbar spine. IMPRESSION: 1. No acute fracture or dislocation. 2. No opaque foreign body. ACT 112: Negative or not required by law. The above report was generated using voice recognition software. It may contain grammatical, syntax o r spelling errors. Electronically signed by: Mitchell Gregg M.D. 12/07/2019 7:37 PM
--- NOTE | 2019-12-07 20:50 | Billing Data ---
Date of Service December 07, 2019 Coding Level of Care Code 83619 Initial Inpt Care Lvl 3
[2019-12-08 06:48] LABS: BUN Creatinine Ratio 26.3 (10-20); Calcium 8.6 mg/dl (8.5-10.1); Creatinine Clr Calc Pharmacy 138.8 ml/min; Est GFR (African American) 133.1; Est GFR (Non-African American) 114.9; Potassium 3.9 mmol/L (3.5-5.1)
[2019-12-08] MEDS: SODIUM CHLORIDE 0.9% 1000ML 1,000 ML IV SCH (08:08)
[2019-12-08] MEDS: ENOXAPARIN INJ 40 MG/0.4 ML SYR SQ SCH (08:09)
[2019-12-08] MEDS ORDERED: DEXTROSE 50% 50 ML SYRINGE IV STA (09:24)
[2019-12-08] MEDS: BACLOFEN 20 MG TAB PO SCH ×2 (09:58→21:41)
--- NOTE | 2019-12-08 11:22 | Surgery Progress Note ---
Date of Service December 08, 2019 Assessment & Plan (1) SBO (small bowel obstruction): 49 yr old male paraplegic with symptoms/ imaging again suggestive of small bowel obstruction vs ileus/ delayed transit. If develops further nausea/ vomiting, would recommend ng decompression. No significant improvement overnight but is also no worse. He is wondering if manual stimulation would help and is going to try this today (has done previously). If able to have bowel movement, OK to slowly advance diet. OK to have sips of liquids only today. (2) Paraplegia: Subjective Resting in bed. Notes he was feeling better but than abdomen became more firm ag ain this morning. Wondering if his baclofen wore off. No bowel movements. No nausea or vomiting. Physical Exam Constitutional: WD/WN, vitals as above Respiratory: normal respiratory effort, lungs clear to auscultation Cardiovascular: RRR, no murmur, no edema Gastrointestinal (Abdomen): Inspection/Auscultation: abdomen normal to inspection and normal bowel sounds; abdomen not distended Percussion/Palpation: abdomen nontender may be more firm than yesterday Psychiatric: A+Ox3, euthymic affect Results & Data Vital Signs (Past 12 Hours) Vital Signs Temp Pulse Resp BP Pulse Ox 12/08/19 08:03 37.0 C 107 H 20 148/83 H 98 Laboratory Results 12/08/19 12/08/19 12/08/19 Range/Units 10:21 08:49 05:38 Sodium 140 (136-145) mmol/L Potassium 3.9 (3.5-5.1) mmol/L Chloride 107 (98-107) mmol/L Carbon Dioxide 20 L (21-32) mmol/L Anion Gap 12.0 H (3-11) BUN 16 (7-18) mg/dl Creatinine 0.62 (0.6-1.4) mg/dl Est Cr Clr Drug Dosing 138.8 ml/min Est GFR ( Amer) 133.1 Est GFR (Non-Af Amer) 114.9 BUN/Creatinine Ratio 26.3 H (10-20) Glucose 59 L (70-99) mg/dl POC Glucose 173 H 67 L* (70-99) mg/dl Calcium 8.6 (8.5-10.1) mg/dl
[2019-12-08] MEDS: D5W AND 1/2NSS 1,000 ML IV SCH (12:21)
--- NOTE | 2019-12-08 15:22 | Family Medicine Progress Note ---
Date of Service December 08, 2019 Assessment & Plan (1) SBO (small bowel obstruction): 49-year-old male was admitted on 06 Dec 2019 for SBO. Patients initial concern was for possible UTI. Small bowel obstruction: CT a/p noted likely SBO secondary to small bowel adhesions or possibly a small internal hernia. Single episode N/V before admit. Last BM on 22May AM. Trying to avoid constipating meds. Has Zofran prn. - See general surgery note. Noted patient wants to try to self-stimulate for a BM. Start sips of liquids today. If has BM, can advance diet. - Checking a repeat KUB. Neurogenic bladder, T5 spinal cord injury (2001), paraplegia: Does self-cath at home. Admit UA positive for WBC, RBC, casts, and Epis. UCx showed no growth. Jensen catheter placed. Initially received doses of ceftriaxone and cefepime, but since no evidence of infection they were stopped. - Restarted his home baclofen, senna/docusate. Held home PO dulcolax and oxybutynin. - Recommended he have follow-up with a urologist given his urinalysis findings. This can be arranged through his primary care provider. Scrotal mass: Patient requested evaluation of possible scrotal ball-like structure that moves on both sides of the scrotum for years. Says not an acute concern. Here, XR hips / pelvis noted no opaque foreign body. Can be followed up by his PCP. Transient hypoglycemia: While NPO, was noted to have a random glucose of 59 this morning. Otherwise asymptomatic. Gave him some dextrose. - Switched his IVF to D5 1/[address] a/p finding (can be evaluated as an outpatient): - Prostatomegaly. 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 - Possible left kidney cyst: 7 mm hypodensity. Ongoing medical issues: - Prior DVT: Had IVC filter placed around 2001. Held home apixiban 5 mg BID while NPO. --- Consider outpatient change to 2.5 mg BID dosing. - Anemia: Admit Hb 12.0, MCV 84. Comparisons around 10-12. No evidence of acute bleeding. - PMH buttock pressure ulcer: Patient states not presently an issue. - Prior spinal fusion. Chronic ground glass opacity on lung imaging. Code status: DNR/DNI. Diet: NPO except sips & meds. On D5 1/2 NS at 80 mL/hr. DVT prophy: Restarted home apixiban. PT/OT: Deferred. Disbo: Admitted to med surg. Lives at home alone. (2) Neurogenic bladder: (3) T5 spinal cord injury: (4) Paraplegia: (5) Enlarged prostate: (6) Left kidney mass: (7) History of DVT (deep vein thrombosis): (8) Anemia: Admission and Anticipated Discharge Date Admission Date: December 06, 2019 Supervising Physician Co-Signing Physician Notes I personally examined the patient and verified all camacho points of history and exam, discussed case, and agree with decision making with Dr. Pringle with the following additions/exceptions: Patient feels like he is having increased pressure in the abdomen today. No nausea but developing some heartburn. He has not noted any flatus from below and did not have a bowel movement. He typically uses self manual rectal stimulation on Tuesdays and to get himself to have a bowel movement and would like to do that here. Vitals reviewed NAD, AAOx3 Anicteric sclerae RRR no mgr CTAB no wcr ABd +BS soft NT, mild distention throughout, nonrigid Ext atrophy, flaccid SKin-multiple small abrasions/scratches on legs KUB image personally reviewed by me-no evidence of obstruction but there is a paucity of gas in the colon but more than previous Labs reviewed 49 yo male with T5 paraplegia, here with PSBO/ileus, N/V, UTI ruled out. Improved on imaging, difficult to tell based on symptoms due to his paraplegia -We will allow him to manually self stim the rectum and consider postcoital rectal suppository -Starting home senna/docusate, but would hold off on starting fiber supplement at this time Appreciate general surgery evaluation -Continue to observe with serial abdominal exams NGT if worsening distension or N/V Okay to restart home Eliquis as it does not appear that he will need any kind of surgical intervention Subjective Plan patient resting comfortably in bed this morning. He says he presently has a 3/10 amount of abdominal pain but it is manageable. Has not had any bowel movement or gas, though he has not done any of his normal rectal stimulation to do so. Denies any nausea or vomiting. No other acute concerns. He did wonder about the results of the x-ray yesterday regarding a possible small foreign body versus mass in the scrotum. He says it has been there for years, that it seems to move from one side to the scrotum to the other, but is not an immediate concern of his. Review of Systems Review of Systems: Per HPI as above. Physical Exam Physical Exam: General Appearance: Awake, alert & oriented, comfortable in general, NAD. CV: +S1S2 RRR, no murmur. Pulm: Clear to auscultation throughout. Abdomen: +BS, soft, non-distended. Positive mild guarding. Jensen catheter in place. Extremities: There is some chronic bilateral lower extremity (shins distally) skin changes that do not appear infected. Neuro: T5 and distal paraplegia. No gross deficits in upper extremities. exam by Dr. Ascencio on 22Ma: testicles no masses, vas deferans palpated bilat and no masses, did palpate a very small 5 mm mobile rubbery mass in left hemiscrotum Results & Data ([facility]) Vital Signs (Past 12 Hours) Vital Signs Temp Pulse Resp BP Pulse Ox 12/08/19 08:03 37.0 C 107 H 20 148/83 H 98 Laboratory Results 12/08/19 12/08/19 12/08/19 Range/Units 10:21 08:49 05:38 Sodium 140 (136-145) mmol/L Potassium 3.9 (3.5-5.1) mmol/L Chloride 107 (98-107) mmol/L Carbon Dioxide 20 L (21-32) mmol/L Anion Gap 12.0 H (3-11) BUN 16 (7-18) mg/dl Creatinine 0.62 (0.6-1.4) mg/dl Est Cr Clr Drug Dosing 138.8 ml/min Est GFR ( Amer) 133.1 Est GFR (Non-Af Amer) 114.9 BUN/Creatinine Ratio 26.3 H (10-20) Glucose 59 L (70-99) mg/dl POC Glucose 173 H 67 L* (70-99) mg/dl Calcium 8.6 (8.5-10.1) mg/dl Medications Administered Current Inpatient Medications Apixaban (Eliquis) 5 mg PO BID [facility] Stop: 01/07/20 20:59 Baclofen (Lioresal) 20 mg PO BID [facility] Stop: 01/07/20 08:59 Last Admin: 12/08/19 09:58 Dose: 20 mg Documented by: Calcium Polycarbophil (Fibercon) 1,250 mg PO BID [facility] Stop: 01/07/20 20:59 Dextrose/Sodium Chloride (D5w And 1/2nss) 1,000 mls @ 80 mls/hr IV .[id number] [facility] Stop: 01/07/20 11:59 Last Admin: 12/08/19 12:21 Dose: 80 mls/hr Documented by: Ioversol (Optiray 320 100ml) 91 ml IV ONCE PRN PRN Reason: Interaction Checking Stop: 12/10/19 18:22 Last Admin: 12/06/19 18:23 Dose: 91 ml Documented by: Ondansetron HCl (Zofran) 4 mg IV Q6H PRN PRN Reason: Nausea Stop: 01/05/20 22:06 Senna/Docusate Sodium (Senokot S) 2 tab PO BID [facility] Stop: 01/07/20 20:59 Resident Activity Tracking Resident Involvement: Resident Care Provided Care Provided: Adult Hospital Medicine
--- NOTE | 2019-12-08 15:26 | XRay Report ---
KUB HISTORY: Abdominal distention. Generalized abdominal pain. COMPARISON: KUB 12/06/2019. FINDINGS: A few mildly dilated gas-filled loops of small bowel again noted within the upper abdomen. There is gas within the colon. This has improved in the interval. An IVC filter is noted. Partially v isualized thoracic spinal fusion hardware. There is a Jensen catheter overlying the pelvis. No renal calculi. No ureteral calculi. No pneumoperitoneum or pneumatosis. IMPRESSION: Improvement in the suspected partial small bowel obstruction. ACT 112: Negative or not required by law. Electronically signed by: Chet Yepez M.D. 12/08/2019 3:24 PM
--- NOTE | 2019-12-08 18:36 | Billing Data ---
Date of Service December 08, 2019 Coding Level of Care Code 44222 Initial Inpt Care Lvl 3
[2019-12-08] MEDS ORDERED: CALCIUM POLYCARBOPHIL 625MG TAB PO SCH (21:00)
[2019-12-08] MEDS: APIXABAN 5 MG TABLET PO SCH (21:41)
[2019-12-08] MEDS: DOCUSATE SODIUM/SENNA 50/8.6MG TAB PO SCH (21:41)
[2019-12-09] MEDS: D5W AND 1/2NSS 1,000 ML IV SCH ×2 (00:29→12:58)
[2019-12-09 06:12] LABS: Hematocrit (blood only) 35.2 % (42-52); Hemoglobin 12.5 g/dL (14.0-18.0); Mean Corpuscular Hemoglobin 29.5 pg (25-34); Mean Corpuscular Hgb Conc 35.5 g/dL (32-36); Mean Platelet Volume 9.1 fL (7.4-10.4); Platelet Count 224 K/uL (130-400); RDW Coefficient of Variation 13.5 % (11.5-14.5); RDW Standard Deviation 41.2 fL (36.4-46.3); Red Blood Count 4.24 M/uL (4.7-6.1); White Blood Count 9.32 K/uL (4.8-10.8)
[2019-12-09 06:36] LABS: BUN Creatinine Ratio 12.4 (10-20); Calcium 8.3 mg/dl (8.5-10.1); Creatinine Clr Calc Pharmacy 122.9 ml/min; Est GFR (African American) 126.6; Est GFR (Non-African American) 109.3; Potassium 3.3 mmol/L (3.5-5.1)
[2019-12-09] MEDS: BACLOFEN 20 MG TAB PO SCH ×2 (08:18→20:06)
[2019-12-09] MEDS: DOCUSATE SODIUM/SENNA 50/8.6MG TAB PO SCH ×2 (08:18→20:06)
[2019-12-09] MEDS: APIXABAN 5 MG TABLET PO SCH ×2 (08:18→20:06)
[2019-12-09] MEDS ORDERED: POTASSIUM CHLORIDE 20 MEQ TABCR PO ONE (09:00)
--- NOTE | 2019-12-09 12:47 | Surgery Progress Note ---
Date of Service December 09, 2019 Assessment & Plan (1) SBO (small bowel obstruction): 49 yr old male paraplegic with symptoms/ imaging again suggestive of small bowel obstruction vs ileus/ delayed transit. Appears to be resolving. OK to advance diet as tolerated. Will sign off - please call with questions. (2) Paraplegia: Subjective As per patient, had a good result with manual stimulation with loose stools. Has continued to have bowel movements and abdominal firmness is better. Tolerating liquids and wondering about advancement. AXR last night showed improvement. Review of Systems Review of Systems: All systems reviewed & are unremarkable except as noted in HPI & below Physical Exam Constitutional: WD/WN, vitals as above Gastrointestinal (Abdomen): Inspection/Auscultation: abdomen normal to inspection and normal bowel sounds; abdomen not distended Percussion/Palpation: abdomen nontender Psychiatric: A+Ox3, euthymic affect Results & Data Vital Signs (Past 12 Hours) Vital Signs Temp Pulse Resp BP Pulse Ox 12/09/19 07:27 36.6 C 95 H 18 151/79 H 98
--- NOTE | 2019-12-09 18:07 | Family Medicine Progress Note ---
Date of Service December 09, 2019 Assessment & Plan (1) SBO (small bowel obstruction): 49-year-old male was admitted on 06 Dec 2019 for SBO. Patients initial concern was for possible UTI. Small bowel obstruction: CT a/p noted likely SBO secondary to small bowel adhesions or possibly a small internal hernia. Improved nausea (no Zofran use thus far). Repeat KUB suggestive of improved SBO. Last BM on 23May. Trying to avoid constipating meds. See general surgery notes (have signed off). - Tolerating clear liquids, so will continue to advance diet. Stopped IVF. Neurogenic bladder, T5 spinal cord injury (2001), paraplegia: Jensen catheter in place. UCx now growing Gardnerella and Gram positive cocci. Sensitivities pending, though suspect it is just skin contamination. Initially received doses of ceftriaxone and cefepime, but was held due to no initial UCx growth. - Is on home baclofen and senna/docusate. Held home PO dulcolax, Fibercon, and oxybutynin. - Recommended he have follow-up with a urologist given his urinalysis findings. This can be arranged through his primary care provider. Scrotal mass: Patient requested evaluation of possible scrotal ball-like structure that moves on both sides of the scrotum for years. Says not an acute concern. Here, XR hips / pelvis noted no opaque foreign body. Can be followed up as an outpatient. Transient hypoglycemia: While NPO, lowest glucose was 59. Asymptomatic from hypoglycemic perspective. Given glucose along the way. Hypokalemia: K as low as 3.3 while NPO. Replaced, monitoring. Incidental CT a/p finding (can be evaluated as an outpatient): - Prostatomegaly. 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 - Possible left kidney cyst: 7 mm hypodensity. Ongoing medical issues: - Prior DVT: Had IVC filter placed around 2001. Held home apixiban 5 mg BID while NPO. --- Consider outpatient change to 2.5 mg BID dosing. - Anemia: Admit Hb 12.0, MCV 84. Comparisons around 10-12. No evidence of acute bleeding. - PMH buttock pressure ulcer: Patient states not presently an issue. - Prior spinal fusion. Chronic ground glass opacity on lung imaging. Code status: DNR/DNI. Diet: Low fiber. DVT prophy: On home apixiban. PT/OT: Deferred. Disbo: Admitted to med surg. Lives at home alone. (2) Neurogenic bladder: (3) T5 spinal cord injury: (4) Paraplegia: (5) Enlarged prostate: (6) Left kidney mass: (7) History of DVT (deep vein thrombosis): (8) Anemia: (9) Hypokalemia: Admission and Anticipated Discharge Date Admission Date: December 06, 2019 Supervising Physician Co-Signing Physician Notes I personally examined the patient and verified all camacho points of history and exam, discussed case, and agree with decision making with Dr. Pringle with the following additions/exceptions: Patient feels improved today, abdominal spasms have significantly lessened. He had 2 bowel movements yesterday after manual self-stimulation, but none so far today. He denies any nausea or vomiting. He is now tolerating clear liquids after advancement. Feeling better overall. Vitals reviewed NAD, AAOx3 Anicteric sclerae RRR no mgr CTAB no wcr ABd +BS soft NT, mild distention throughout, nonrigid Ext atrophy, flaccid SKin-multiple small abrasions/scratches on legs Urine culture growing gram-positive cocci and Gardnerella-like bacilli 49 yo male with T5 paraplegia, here with PSBO/ileus, N/V, UTI ruled out. Bowel obstruction seems to be resolved Difficult to tell based on symptoms due to his paraplegia, but overall improved, tolerating clear liquids -Advance diet as tolerated by tomorrow and likely discharge to home at that time -Recommend more aggressive bowel regimen at home-would add on daily MiraLAX -Continue senna/docusate, but would hold off on starting fiber supplement at this time in favor of a low fiber diet while bowel obstruction is resolving Appreciate general surgery evaluation-they have signed off Restarted home Eliquis UA was contaminated with epithelial cells and urine culture seems more consistent with bacteria from the skin-would not treat with antibiotics Subjective Found patient resting comfortably in bed this morning. He denied any abdominal pain or other complaints. Also denies any nausea or vomiting. Overall said that his abdomen felt less tense. He says he has not tried to have a bowel movement today. His only current question was if his diet would be advanced at dinnertime today. Review of Systems Review of Systems: Per HPI as above. Physical Exam Physical Exam: General Appearance: Awake, alert & oriented, comfortable in general, NAD. CV: +S1S2 RRR, no murmur. Pulm: Clear to auscultation throughout. Abdomen: +BS, soft, non-distended. No longer any guarding. Jensen catheter in place. Extremities: There is some chronic bilateral lower extremity (shins distally) skin changes that do not appear infected. Neuro: T5 and distal paraplegia. No gross deficits in upper extremities. exam by Dr. Ascencio on : testicles no masses, vas deferans palpated bilat and no masses, did palpate a very small 5 mm mobile rubbery mass in left hemiscrotum Results & Data ([facility]) Vital Signs (Past 12 Hours) Vital Signs Temp Pulse Resp BP BP Pulse Ox 12/09/19 15:29 37.4 C 96 H 18 121/72 98 12/09/19 07:27 36.6 C 95 H 18 151/79 H 98 Laboratory Results 12/09/19 12/09/19 Range/Units 05:36 05:36 WBC 9.32 (4.8-10.8) K/uL RBC 4.24 L (4.7-6.1) M/uL Hgb 12.5 L (14.0-18.0) g/dL Hct 35.2 L (42-52) % MCV 83.0 (80-100) fL MCH 29.5 (25-34) pg MCHC 35.5 (32-36) g/dL RDW Std Deviation 41.2 (36.4-46.3) fL RDW Coeff of Shanice 13.5 (11.5-14.5) % Plt Count 224 (130-400) K/uL MPV 9.1 (7.4-10.4) fL Sodium 138 (136-145) mmol/L Potassium 3.3 L D (3.5-5.1) mmol/L Chloride 106 (98-107) mmol/L Carbon Dioxide 25 (21-32) mmol/L Anion Gap 7.0 (3-11) BUN 9 D (7-18) mg/dl Creatinine 0.70 (0.6-1.4) mg/dl Est Cr Clr Drug Dosing 122.9 ml/min Est GFR ( Amer) 126.6 Est GFR (Non-Af Amer) 109.3 BUN/Creatinine Ratio 12.4 (10-20) Glucose 110 H (70-99) mg/dl Calcium 8.3 L (8.5-10.1) mg/dl Medications Administered Current Inpatient Medications Apixaban (Eliquis) 5 mg PO BID [facility] Stop: 01/07/20 20:59 Last Admin: 12/09/19 08:18 Dose: 5 mg Documented by: Baclofen (Lioresal) 20 mg PO BID [facility] Stop: 01/07/20 08:59 Last Admin: 12/09/19 08:18 Dose: 20 mg Documented by: Ioversol (Optiray 320 100ml) 91 ml IV ONCE PRN PRN Reason: Interaction Checking Stop: 12/10/19 18:22 Last Admin: 12/06/19 18:23 Dose: 91 ml Documented by: Ondansetron HCl (Zofran) 4 mg IV Q6H PRN PRN Reason: Nausea Stop: 01/05/20 22:06 Senna/Docusate Sodium (Senokot S) 2 tab PO BID [facility] Stop: 01/07/20 20:59 Last Admin: 12/09/19 08:18 Dose: 2 tab Documented by: Resident Activity Tracking Resident Involvement: Resident Care Provided Care Provided: Adult Hospital Medicine
--- NOTE | 2019-12-09 20:18 | Billing Data ---
Date of Service December 09, 2019 Coding Level of Care Code 48965 Initial Inpt Care Lvl 2
[2019-12-10] MEDS ORDERED: POTASSIUM CHLORIDE 20 MEQ TABCR PO STA ×2 (08:00→09:14)
[2019-12-10] MEDS: APIXABAN 5 MG TABLET PO SCH (08:29)
[2019-12-10] MEDS: BACLOFEN 20 MG TAB PO SCH (08:29)
[2019-12-10] MEDS: DOCUSATE SODIUM/SENNA 50/8.6MG TAB PO SCH (08:29)
[2019-12-10 08:32] LABS: BUN Creatinine Ratio 7.8 (10-20); Calcium 8.7 mg/dl (8.5-10.1); Creatinine Clr Calc Pharmacy 128.4 ml/min; Est GFR (African American) 128.9; Est GFR (Non-African American) 111.3; Potassium 3.2 mmol/L (3.5-5.1)
--- NOTE | 2019-12-10 12:18 | Discharge Summary ---
Date of Service December 10, 2019 Admission HPI Per Admitting Provider Asked to see this 49 yr old man with PMH of T5 paralysis, neurogenic bladder and prior history of SBO vs ileus in 05/2018 who presented to the ED with a chief complaint of bloody possible urinary tract infection. He does self- catheterization because of a neurogenic bladder related to his spinal cord injury. Over the past few days, has noticed some spasm/ tightness in abdomen, intermittent nausea, darker urine. Has not been eating as much since Tuesday. Had a bowel movement on Tuesday, a looser one Tuesday and another last night. Unclear if there was any substance to the stool last night. Does not have abdominal pain as has no sensation below T5. He is hungry and has not had any nausea in the last 1-2 days. In 05/2018, admitted with SBO on CT scan but clinical picture more c/w ileus. Seen by Dr. Jarek BALDERAS ultimately traveled to colon but did show markedly delayed transit. Did need a ng tube during that admission. Symptoms resolved conservatively. No prior abdominal operations. Discharge Data Allergies Allergy/AdvReac Type Severity Reaction Status Date / Time Sulfa (Sulfonamide Allergy Mild Unknown Verified 12/06/19 18:05 Antibiotics) Consultations 12/06/19 19:15 ED Decision to Admit Stat 12/07/19 12:04 Consult General Surgery Routine Ordered Studies 12/06/19 18:03 CT abd pelvis IV con only Stat Hospital Course (1) SBO (small bowel obstruction): 49-year-old male was admitted on 06 Dec 2019 for SBO. Patients initial concern was for possible UTI. Small bowel obstruction: CT a/p noted likely SBO secondary to small bowel adhesions or possibly a small internal hernia. Improved nausea (no Zofran use thus far). Repeat KUB suggestive of improved SBO. Last BM on 23May. Trying to avoid constipating meds. See general surgery notes (have signed off). - Tolerating clear liquids, so will continue to advance diet. Stopped IVF. Neurogenic bladder, T5 spinal cord injury (2001), paraplegia: Jensen catheter in place. UCx now growing Gardnerella and Gram positive cocci. Sensitivities pending, though suspect it is just skin contamination. Initially received doses of ceftriaxone and cefepime, but was held due to no initial UCx growth. - Is on home baclofen and senna/docusate. Held home PO dulcolax, Fibercon, and oxybutynin. - Recommended he have follow-up with a urologist given his urinalysis findings. This can be arranged through his primary care provider. Scrotal mass: Patient requested evaluation of possible scrotal ball-like structure that moves on both sides of the scrotum for years. Says not an acute concern. Here, XR hips / pelvis noted no opaque foreign body. Can be followed up as an outpatient. Transient hypoglycemia: While NPO, lowest glucose was 59. Asymptomatic from hypoglycemic perspective. Given glucose along the way. Hypokalemia: K as low as 3.3 while NPO. Replaced, monitoring. Incidental CT a/p finding (can be evaluated as an outpatient): - Prostatomegaly. 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 - Possible left kidney cyst: 7 mm hypodensity. Ongoing medical issues: - Prior DVT: Had IVC filter placed around 2001. Held home apixiban 5 mg BID while NPO. --- Consider outpatient change to 2.5 mg BID dosing. - Anemia: Admit Hb 12.0, MCV 84. Comparisons around 10-12. No evidence of acute bleeding. - PMH buttock pressure ulcer: Patient states not presently an issue. - Prior spinal fusion. Chronic ground glass opacity on lung imaging. Code status: DNR/DNI. Diet: Low fiber. DVT prophy: On home apixiban. PT/OT: Deferred. Disbo: Admitted to med surg. Lives at home alone. (2) Neurogenic bladder: (3) T5 spinal cord injury: (4) Paraplegia: (5) Enlarged prostate: (6) Left kidney mass: (7) History of DVT (deep vein thrombosis): (8) Anemia: (9) Hypokalemia: Discharge Plan Discharge Items Patient Disposition: Home - Self-Care Reason For Visit: PARTIAL SMALL BOWEL OBSTRUCTION Discharge Diagnosis: SBO Activity: Per Instructions section Non-emergency contact: Primary Care Provider Call non-emergency contact if: your symptoms worsen Follow-up/Referrals: Viki Alvarado DO [Primary Care Provider] - Diet: Regular Addtl Attending Provider Instructions: Mr. Nolan, you were admitted with a small bowel obstruction. Your symptoms have improved and we are discharging you home. You can re-start all your home medications and your care prior to being hospitalized. We are also asking that you start the medication Miralax DAILY to hep with your bowel movements. Should you notice that your bowel movements are becoming loose, you can take the Miralax EVERY OTHER DAY. Should you develop your symptoms once more or nausea, vomitting, abdominal pain, constipation or fevers please seek out emergent care once more. It was a pleasure taking care of you during your stay here! Pending Studies at Discharge: No Stand-Alone Forms: My [facility], Smoking Cessation Medications and DC Order Prescriptions: New polyethylene glycol 3350 [Miralax] 17 gram powder in packet 17 gm PO DAILY Qty: 100 RF: 0 Continued Eliquis 5 mg tablet 5 mg PO BID Qty: 180 RF: 1 oxybutynin chloride 10 mg tablet extended release 24hr 10 mg PO BID Qty: 180 RF: 1 multivitamin Tablet 1 tab PO DAILY RF: 0 calcium polycarbophil [FiberCon] 625 mg Tablet 1,250 mg PO BID RF: 0 bisacodyl [Dulcolax (bisacodyl)] 5 mg Tablet,Delayed Release (Dr/Ec) 5 mg PO DAILY PRN (Reason: Constipation) RF: 0 sennosides-docusate sodium [Senna with Docusate Sodium] 8.6-50 mg Tablet 2 tab PO BID RF: 0 baclofen 20 mg tablet 20 mg PO BID RF: 0 Admission Data Admit Date/Time: 12/06/19 20:27 Attending Provider: Andrea Justice Admit Provider: Arcenio Conte Primary Care Provider: Viki Alvarado Other Providers: Arcenio Conte ; Tyesha Hayes
--- NOTE | 2019-12-10 12:22 | Discharge Summary ---
Date of Service December 10, 2019 Admission HPI Per Admitting Provider Peyman Nolan is a 49y/o M w/ PMH with PMH of T5 paralysis, neurogenic bladder; who presented to the ED with a chief complaint of bloody possible urinary tract infection. He does self-catheterization because of a neurogenic bladder related to his spinal cord injury. The patient states that he has experienced over the past couple of days some spasm/tightness in his abdomen and his urine appears darker than usual. Over this time he has had two episodes of nausea and vomiting, and as a result has reduced the amount that he has eaten since Tuesday. Denies abdominal pain as he does not have sensation below his chest. Last bowel movement was three days ago, which he has had sporadically since he was paralyzed. Denies fever, chills, cough, and shortness of breath. Admission Exam Per Admitting Provider Constitutional: WD/WN, vitals as above Eyes: PERRL, conjunctivae normal, anicteric sclerae ENMT: external ear and nose normal, oropharynx normal Neck: normal visual inspection Respiratory: normal respiratory effort, lungs clear to auscultation Cardiovascular: Rate/Rhythm: regular rate and regular rhythm Heart Sounds: normal S1 and normal S2; no gallop, no murmur and no cardiac rub Vessels: no JVD Extremities: no edema Gastrointestinal (Abdomen): Inspection/Auscultation: abdomen not distended Percussion/Palpation: + abdomen tender and + guarding; abdomen not rigid Musculoskeletal: Extremities: no cyanosis and no clubbing Skin: no rashes, warm and dry Psychiatric: A+Ox3, euthymic affect Genitourinary: no CVA tenderness Lymphatic: no cervical or axillary lymphadenopathy Principal Diagnosis Small Bowel Obstruction Discharge Exam General: Alert, oriented. No acute distress, laying in bed. Skin: Lower extremities with some noted redness Psych: Appropriate mood and affect Neuro: Decreased sensation below the nipples HEENT: NC/AT Chest: Nontender to palpation. CV: RRR, Normal s1, s2. No murmurs appreciated Resp: Breath sounds clear bilaterally, no increased effort of breathing. Abdomen: BS+. Soft, nondistended. Extremities: No edema in lower extremities bilaterally. Discharge Data Allergies Allergy/AdvReac Type Severity Reaction Status Date / Time Sulfa (Sulfonamide Allergy Mild Unknown Verified 12/06/19 18:05 Antibiotics) Consultations 12/06/19 19:15 ED Decision to Admit Stat 12/07/19 12:04 Consult General Surgery Routine Ordered Studies 12/06/19 18:03 CT abd pelvis IV con only Stat Hospital Course (1) SBO (small bowel obstruction): 49-year-old male was admitted on 06 Dec 2019 for SBO and discharged on Dec 10 2019. Patients initial concern was for possible UTI in the setting of self- catheterization for neurogenic bladder secondary to a T5 spinal injury and Hx of paraplegia. Small bowel obstruction: CT a/p noted likely SBO secondary to small bowel adhesions or possibly a small internal hernia. Repeat KUB 12/08/2019 suggestive of improved SBO. Last noted BM on Dec 09 2019. Seen by General Surgery. Per their recs, avoid constipating meds. On day of discharge-improved nausea, tolerating solid food, multiple bowel movements. Neurogenic bladder, T5 spinal cord injury (2001), paraplegia: Self-catheterization at home but Jensen catheter while hospitalized. UA on admission with 2+ Blood and 1+ leukocyte esterase. Negative nitrites and bacteria. UCx grew Gardnerella and Gram positive cocci. Pedroza-sensitive, though suspect it is just skin contamination. Received doses of ceftriaxone and cefepime. On discharge home baclofen and senna/docusate, dulcolax, Fibercon, and oxybutynin all continued. Added Miralax daily, with instructions to take every other day should stools become too loose. Recommend follow-up with a urologist given his urinalysis findings. Scrotal mass: Patient requested evaluation of possible scrotal ball-like structure that moves on both sides of the scrotum for years. XR hips / pelvis noted no opaque foreign body. Can be followed up as an outpatient. Incidental CT finding (can be evaluated as an outpatient): - Prostatomegaly. 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 - Possible left kidney cyst: 7 mm hypodensity. -Chronic ground glass opacity on lung imaging. Transient hypoglycemia: Noted episodes while NPO lowest glucose was 59. Asymptomatic Resolved on discharge Hypokalemia: Repleted while hospitalized Monitoring after discharge recommended Hx of DVT: Had IVC filter placed around 2001. Held home apixiban 5 mg BID while NPO. Restarted on discharge. Consider outpatient change to 2.5 mg BID dosing. Anemia: Admit Hb 12.0, MCV 84. No evidence of acute bleeding. PMH buttock pressure ulcer Patient states not presently an issue. (2) Neurogenic bladder: (3) T5 spinal cord injury: (4) Paraplegia: (5) Enlarged prostate: (6) Left kidney mass: (7) History of DVT (deep vein thrombosis): (8) Anemia: (9) Hypokalemia: Total Time Total Time Spent Total Time Spent (In Minutes): See attending attestation Discharge Plan Discharge Items Patient Disposition: Home - Self-Care Reason For Visit: PARTIAL SMALL BOWEL OBSTRUCTION Discharge Diagnosis: SBO Activity: Per Instructions section Non-emergency contact: Primary Care Provider Call non-emergency contact if: your symptoms worsen Follow-up/Referrals: Viki Alvarado, [Primary Care Provider] - Diet: Regular Addtl Attending Provider Instructions: Mr. Nolan, you were admitted with a small bowel obstruction. Your symptoms have improved and we are discharging you home. You can re-start all your home medications and your care prior to being hospitalized. We are also asking that you start the medication Miralax DAILY to hep with your bowel movements. Should you notice that your bowel movements are becoming loose, you can take the Miralax EVERY OTHER DAY. We also ask that you follow up with your primary care provider as soon as possible after discharge. Should you develop your symptoms once more or nausea, vomitting, abdominal pain, constipation or fevers please seek out emergent care once more. It was a pleasure taking care of you during your stay here! Pending Studies at Discharge: No Stand-Alone Forms: My [facility], Smoking Cessation Medications and DC Order Prescriptions: New polyethylene glycol 3350 [Miralax] 17 gram powder in packet 17 gm PO DAILY Qty: 100 RF: 0 Continued Eliquis 5 mg tablet 5 mg PO BID Qty: 180 RF: 1 oxybutynin chloride 10 mg tablet extended release 24hr 10 mg PO BID Qty: 180 RF: 1 multivitamin Tablet 1 tab PO DAILY RF: 0 calcium polycarbophil [FiberCon] 625 mg Tablet 1,250 mg PO BID RF: 0 bisacodyl [Dulcolax (bisacodyl)] 5 mg Tablet,Delayed Release (Dr/Ec) 5 mg PO DAILY PRN (Reason: Constipation) RF: 0 sennosides-docusate sodium [Senna with Docusate Sodium] 8.6-50 mg Tablet 2 tab PO BID RF: 0 baclofen 20 mg tablet 20 mg PO BID RF: 0 Discharge Orders: Discharge Order (Routine); Ordered 12/10/19 Ordered By: Sheryl Low Admission Data Admit Date/Time: 12/06/19 20:27 Attending Provider: Andrea Justice Admit Provider: Arcenio Conte Primary Care Provider: Viki Alvarado Other Providers: Arcenio Conte ; Tyesha Hayes Other Interventions: Discharge Summary Assessment (RN) Last Done: 12/10/19 13:01 DC Date/Time DO NOT enter until pt leaves facility: 12/10/19 14:00 Supervising Physician Co-Signing Physician Notes Patient seen and examined with Dr. Low. I agree with her exam findings, review of systems, assessment and plan. I have personally reviewed the lab work and imaging from today. patient feeling well, moving bowels, tolerating diet no abdominal pain he feels ready to go home Exam: abdomen is soft, NT, ND, + BS neurologic: paraplegic lungs CTA bilaterally, normal effort heart regular S1/S2, no murmurs Small bowel obstruction: resolved, d/c to home on bowel regimen recommend using Miralax PRN if he cannot move bowels in two days follow up with PCP 32 minutes spent on this discharge Resident Activity Tracking Resident Involvement: Resident Care Provided Care Provided: Adult Hospital Medicine
--- NOTE | 2019-12-11 20:56 | Billing Data ---
Date of Service December 10, 2019 Coding Level of Care Code D/C Day Management >30 mins
== END 2019-12-10 14:00 | disposition home health service (06) | DRG 390 ==
LOC: ED 16:15 → 2W 20:27 → SUATTDRO 20:27 → 2W 22:08

== ENCOUNTER 2019-12-31 12:12 | Inpatient (IN) ==
--- NOTE | 2019-12-31 13:37 | Emergency Department Note ---
Impression & Plan Proctitis, Paraplegia, Tachycardia, Acute dehydration ED Provider Note NAME: WALT DURÁN AGE: 49 SEX: M : 1970 ARRIVES VIA: Walk-In INFORMANT: [Patient] ED PROVIDER(S): [Asif Barragan MD] CHIEF COMPLAINT: Possible bowel obstruction HISTORY OF PRESENT ILLNESS: The patient is a 49-year-old male who presents to the ED with about 1 week of difficulty with bowel movements. The patient was in our hospital around 2 weeks ago for a bowel obstruction which opened spontaneously. The patient states that he had a little bit of stool on Tuesday, Tuesday and but his bowel movements have been far from normal. He has had no appetite and has not had anything to eat or drink in about 4 days. No urinary complaints. No nausea or vomiting, no pain. No fevers or chills or cough or congestion. The patient states that he feels quite thirsty and thinks he is dehydrated. He is concerned he has a recurrent bowel obstruction. Of note, the patient is a T5 paraplegic. He does self cath. He believes his urine has remained clear, he does not think he has an infection. REVIEW OF SYSTEMS: See HPI for pertinent positives and negatives. A total of ten systems were reviewed and were otherwise negative. PMHx/PSHx: See Below SOCIAL HISTORY: See Below. PHYSICAL EXAM: GENERAL: Patient is in no acute distress. HEENT: No acute trauma, normocephalic atraumatic, mucous membranes dry, no nasal congestion, no scleral icterus. NECK: No stridor, no adenopathy, no meningismus, trachea is midline. LUNGS: Clear to auscultation bilaterally but diminished bilaterally, no wheeze, no rhonchi, breath sounds equal. HEART: Tachycardic, regular rhythm, no murmurs. ABDOMEN: Soft, nontender, bowel sounds positive, no hernias, no peritonitis. EXTREMITIES: No cyanosis or edema, full range of motion of all the joints without pain or difficulty, no signs for acute trauma. NEUROLOGIC: Oriented x 3, no movement of the lower extremities consistent with his paraplegia. Upper extremities move equally bilaterally. SKIN: No rash, no jaundice, no diaphoresis. DIFFERENTIAL DIAGNOSIS: Appendicitis, testicular torsion, infections, diverticulitis, UTI, obstruction, mesenteric ischemia, aortic pathology, inflammatory bowel disease, renal colic, PUD, pancreatitis, biliary pathology, hernia, volvulus, constipation, as well as other pathologies. EMERGENCY DEPARTMENT COURSE/PROCEDURES: ECG: Indication was tachycardia. The EKG shows a sinus tachycardia with a rate of 104. The QTc is 431. There is no ST elevation, no PVCs. Biatrial enlargement was suggested. Continuous Cardiac Monitoring: An order was placed for continuous cardiac monitoring. The monitor shows a rate of 103 with sinus tachycardia. MEDICAL DECISION MAKING: There is no leukocytosis or concerning anemia. No significant electrolyte abnormality or kidney failure. Bilirubin is mildly elevated at 1.2. The remaining liver enzymes are unremarkable. No evidence for pancreatitis by our testing. Abdominal and pelvis CT shows evidence for proctitis, no bowel obstruction. EKG shows a sinus tachycardia, no acute ischemic change. On exam, the patient did not appear toxic, he did seem dehydrated. The patient received IV saline, 1 L. He is resting comfortably. His heart rate has decreased. I did speak with GI, they recommended a medical admission. The patient will l ikely require a colonoscopy to better evaluate the proctitis. I talked to the patient, he is aware of his findings. With his tachycardia, his dehydration, his proctitis and history of paraplegia, a hospital stay was felt warranted. Case management has been involved. The on-call hospitalist was c onsulted. Past Med/Surg History Medical History BILL (acute kidney injury) (Resolved) Constipation (Resolved) Ground glass opacity present on imaging of lung (Chronic) History of DVT (deep vein thrombosis) (Chronic) Muscle spasm (Chronic) Neurogenic bladder (Chronic) Paraplegia (Chronic) Peripheral vascular disease (Chronic) SBO (small bowel obstruction) (Resolved) Sepsis (Resolved) Stage II pressure ulcer of buttock (Resolved) T5 spinal cord injury (Chronic) UTI (urinary tract infection) (Chronic) UTI (urinary tract infection) (Resolved) Surgical History History of back surgery Family History Other Medical history non-contributory Social History Preferred Language: Czech Communication Ability: Effective Visual Impairment: No 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 Beliefs That Will Affect Care: None marital status: Single Current Living Situation: Alone current occupational status: disabled Feels Safe at Home: Yes Safety Concerns: Feels Safe At This Time Smoking Status: Never smoker Tobacco Type: smokeless tobacco ; Cigarettes Per Day: 20 ; Second Hand Exposure: No ; Hx Alcohol Use: No Hx Substance Use: No Allergies Allergies Allergy/AdvReac Type Severity Reaction Status Date / Time Sulfa (Sulfonamide Allergy Mild Unknown Verified 12/31/19 15:55 Antibiotics) Home Meds Home Medications Medication Instructions Recorded Confirmed bisacodyl [Dulcolax (bisacodyl)] 5 mg PO DAILY PRN 04/07/18 12/31/19 calcium polycarbophil [FiberCon] 1,250 mg PO BID 04/07/18 12/31/19 multivitamin 1 tab PO DAILY 04/07/18 12/31/19 Jerrica- Colace 2 tab PO BID 12/31/19 12/31/19 Previous Rx's Medication Instructions Recorded apixaban 5 mg tablet 5 mg PO BID #180 tab 06/25/19 oxybutynin chloride 10 mg 10 mg PO BID #180 tab 12/04/19 tablet,extended release 24 hr polyethylene glycol 3350 [Miralax] 17 gm PO DAILY #100 ea 12/10/19 baclofen 20 mg tablet 20 mg PO BID #60 tab 12/27/19 Results & Data (ED) Vital Signs Vital Signs - 24 hr 12/31/19 12:20 12/31/19 14:35 Temperature 36.4 C L Temperature Source Oral Pulse Rate 122 H Pulse Rate [Left Finger] 103 H Respiratory Rate 20 22 Blood Pressure 104/69 Blood Pressure [Right Arm] 122/80 Blood Pressure Mean 80 Blood Pressure Mean [Right Arm] 94 Pulse Oximetry 97 98 Oxygen Delivery Method Room Air Sepsis Recent Fever Within 48 Hours No Sepsis New/Unexplained Change in Mental Status No Sepsis Action Taken by Nursing No Action Required Home Medications Current Medication List: was personally reviewed by me Laboratory Data Attestation: I reviewed the patient's lab results. Result diagrams: 12/31/19 13:55 12/31/19 13:55 Lab Results 12/31/19 12/31/19 Range/Units 13:55 13:55 WBC 8.89 (4.8-10.8) K/uL RBC 5.00 (4.7-6.1) M/uL Hgb 14.9 (14.0-18.0) g/dL Hct 41.9 L (42-52) % MCV 83.8 (80-100) fL MCH 29.8 (25-34) pg MCHC 35.6 (32-36) g/dL RDW Std Deviation 45.0 (36.4-46.3) fL RDW Coeff of Shanice 14.7 H (11.5-14.5) % Plt Count 234 (130-400) K/uL MPV 9.2 (7.4-10.4) fL Immature Gran % (Auto) 0.2 % Neut % (Auto) 87.5 % Lymph % (Auto) 6.5 % Clayton % (Auto) 5.5 % Eos % (Auto) 0.1 % Baso % (Auto) 0.2 % Immature Gran # (Auto) 0.02 (0.00-0.02) K/uL Neut # (Auto) 7.77 H (1.4-6.5) K/uL Lymph # (Auto) 0.58 L (1.2-3.4) K/uL Clayton # (Auto) 0.49 (0.11-0.59) K/uL Eos # (Auto) 0.01 (0-0.5) K/uL Baso # (Auto) 0.02 (0-0.2) K/uL Sodium 135 L (136-145) mmol/L Potassium 4.7 (3.5-5.1) mmol/L Chloride 100 (98-107) mmol/L Carbon Dioxide 22 (21-32) mmol/L Anion Gap 13.0 H (3-11) BUN 13 (7-18) mg/dl Creatinine 0.98 (0.6-1.4) mg/dl Est Cr Clr Drug Dosing Not Reportable Est GFR ( Amer) 103.0 Est GFR (Non-Af Amer) 88.9 BUN/Creatinine Ratio 13.3 (10-20) Glucose 85 (70-99) mg/dl Calcium 9.6 (8.5-10.1) mg/dl Total Bilirubin 1.2 H (0.2-1) mg/dl AST 12 L (15-37) U/L ALT 21 (12-78) U/L Alkaline Phosphatase 104 (45-117) U/L Total Protein 8.5 H (6.4-8.2) gm/dl Albumin 4.3 (3.4-5.0) gm/dl Globulin 4.2 H (2.5-4.0) gm/dl Albumin/Globulin Ratio 1.0 (0.9-2) Lipase 105 (73-393) U/L Administered Medications Sodium Chloride (Nss 1000ml) 1,000 mls @ 120 mls/hr IV .Q8H20M YONIS Stop: 01/01/20 11:24 Last Admin: 12/31/19 18:58 Dose: 120 mls/hr Documented by: [id number] Discontinued Medications Sodium Chloride (Nss 1000ml) 1,000 mls @ 999 mls/hr IV .Q1H1M YONIS Stop: 12/31/19 14:45 Last Infusion: 12/31/19 16:36 Dose: 0 mls/hr Documented by: [id number] Admin: 12/31/19 14:01 Dose: 999 mls/hr Documented by: [id number] Imaging Data Radiologist's Impression: CT SCAN OF THE ABDOMEN AND PELVIS WITHOUT IV CONTRAST CLINICAL HISTORY: Generalized abdominal pain. COMPARISON STUDY: Abdominal CT dated 12/06/2019. TECHNIQUE: CT scan of the abdomen and pelvis is performed from the lung bases to the proximal femora. Images are reviewed in the axial, sagittal, and coronal planes. IV contrast was not administered for this examination. Note that the examination was performed in suboptimal fashion without oral and IV contrast. A dose lowering technique was utilized adhering to the principles of ALARA. CT DOSE: 341.73 mGycm FINDINGS: Lung bases: The heart is normal in size and without pericardial effusion. The lung bases are clear. Liver: The unenhanced liver is normal in size, contour, and attenuation. There is no intrahepatic biliary ductal dilatation. Gallbladder: Unremarkable. Spleen: Normal in size and attenuation. Pancreas: Unremarkable. Adrenal glands: Unremarkable. Kidneys: The unenhanced kidneys are normal in size and without hydronephrosis. There are no renal calculi identified. There is no evidence of contour deforming renal mass lesion. Abdominal vasculature: The abdominal aorta is normal in course and caliber. An infrarenal IVC filter is in place. Bowel: No bowel obstruction is identified. There is marked rectal wall thick ening with perirectal inflammation. Prominent perirectal lymph nodes measure up to 9 mm as seen on image #[id number]. The appendix is normal as visualized. Peritoneum: There is no intraperitoneal free air or abdominal ascites. Lymphadenopathy: None. Pelvic viscera: The bladder wall is circumferentially thickened there is pericystic inflammation. The prostate gland appears enlarged. Skeletal structures: Postlaminectomy change is seen in the lower thoracic spine with spinal rods in place. No lytic or blastic lesions are seen. IMPRESSION: 1. Findings suggest a severe proctitis. Clinical correlation will be essential. Consider nonemergent follow-up with colonoscopy for further assessment. 2. There is no bowel obstruction. 3. The bladder wall is thickened and pericholecystic inflammation is identified. This may be related to adjacent inflammation of the rectum. Correlation with urinalysis will be required. 4. Additional findings as above. Blood Pressure Blood Pressure Findings: Elevated blood pressure Blood Pressure Disposition: further management by hospitalist Discharge Plan Visit Data *Final* Discharge Date/Time: 12/31/19 18:09 Chief Complaint: GI Assessment Stated Complaint: BOWEL BLOCKAGE ED Provider: Asif Barragan Discharge Problem: Proctitis, Paraplegia, Tachycardia, Acute dehydration Patient Disposition: Admitted As Inpatient Condition: Good Discharge Instructions Interventions: ED Discharge Assessment Last Done: 12/31/19 18:09
[2019-12-31] MEDS ORDERED: SODIUM CHLORIDE 0.9% 1000ML 1,000 ML IV SCH (13:45)
[2019-12-31 14:07] LABS: Basophils # (auto) 0.02 K/uL (0-0.2); Basophils % (auto) 0.2 %; Eosinophils # (auto) 0.01 K/uL (0-0.5); Eosinophils % (auto) 0.1 %; Hematocrit (blood only) 41.9 % (42-52); Hemoglobin 14.9 g/dL (14.0-18.0); Immature Granulocytes # (auto) 0.02 K/uL (0.00-0.02); Immature Granulocytes % (auto) 0.2 %; Lymphocytes # (auto) 0.58 K/uL (1.2-3.4); Lymphocytes % (auto) 6.5 %; Mean Corpuscular Hemoglobin 29.8 pg (25-34); Mean Corpuscular Hgb Conc 35.6 g/dL (32-36); Mean Corpuscular Volume 83.8 fL (80-100); Mean Platelet Volume 9.2 fL (7.4-10.4); Monocytes # (auto) 0.49 K/uL (0.11-0.59); Monocytes % (auto) 5.5 %; Neutrophils # (auto) 7.77 K/uL (1.4-6.5); Neutrophils % (auto) 87.5 %; Platelet Count 234 K/uL (130-400); RDW Coefficient of Variation 14.7 % (11.5-14.5); White Blood Count 8.89 K/uL (4.8-10.8)
[2019-12-31 14:27] LABS: Alanine Aminotransferase 21 U/L (12-78); Albumin Level 4.3 gm/dl (3.4-5.0); Aspartate Aminotransferase 12 U/L (15-37); BUN Creatinine Ratio 13.3 (10-20); Blood Urea Nitrogen 13 mg/dl (7-18); Calcium 9.6 mg/dl (8.5-10.1); Carbon Dioxide 22 mmol/L (21-32); Chloride 100 mmol/L (98-107); Est GFR (Non-African American) 88.9; Glucose 85 mg/dl (70-99); Lipase 105 U/L (73-393); Potassium 4.7 mmol/L (3.5-5.1); Sodium 135 mmol/L (136-145)
[2019-12-31 14:29] LABS: Alkaline Phosphatase 104 U/L (45-117); Bilirubin,Total 1.2 mg/dl (0.2-1); Globulin 4.2 gm/dl (2.5-4.0); Total Protein 8.5 gm/dl (6.4-8.2)
--- NOTE | 2019-12-31 14:50 | CT Scan Report ---
CT SCAN OF THE ABDOMEN AND PELVIS WITHOUT IV CONTRAST CLINICAL HISTORY: Generalized abdominal pain. COMPARISON STUDY: Abdominal CT dated 12/06/2019. TECHNIQUE: CT scan of the abdomen and pelvis is performed from the lung bases to the proximal femora. Images are reviewed in the axial, sagittal, and coronal planes. IV contrast was not administered for this examination. Note that the examination was performed in suboptimal fashion without oral and IV contrast. A dose lowering technique was utilized adhering to the principles of ALARA. CT DOSE: 341.73 mGycm FINDINGS: Lung bases: The heart is normal in size and without pericardial effusion. The lung bases are clear. Liver: The unenhanced liver is normal in size, contour, and attenuation. There is no intrahepatic aubrie iary ductal dilatation. Gallbladder: Unremarkable. Spleen: Normal in size and attenuation. Pancreas: Unremarkable. Adrenal glands: Unremarkable. Kidneys: The unenhanced kidneys are normal in size and without hydronephrosis. There are no renal sylvester culi identified. There is no evidence of contour deforming renal mass lesion. Abdominal vasculature: The abdominal aorta is normal in course and caliber. An infrarenal IVC filter is in place. Bowel: No bowel obstruction is identified. There is marked rectal wall thickening with perirectal inf lammation. Prominent perirectal lymph nodes measure up to 9 mm as seen on image #355. The appendix is normal as visualized. Peritoneum: There is no intraperitoneal free air or abdominal ascites. Lymphadenopathy: None. Pelvic viscera: The bladder wall is circumferentially thickened there is pericystic inflammation. The prostate gland appears enlarged. Skeletal structures: Postlaminectomy change is seen in the lower thoracic spine with spinal rods in p lace. No lytic or blastic lesions are seen. IMPRESSION: 1. Findings suggest a severe proctitis. Clinical correlation will be essential. Consider nonemergent follow-up with colonoscopy for further assessment. 2. There is no bowel obstruction. 3. The bladder wall is thickened and pericholecystic inflammation is identified. This may be related to adjacent inflammation of the rectum. Correlation with urinalysis will be required. 4. Additional findings as above. ACT 112: Negative or not required by law. Electronically signed by: Asif Schulte M.D. 12/31/2019 2:49 PM
--- NOTE | 2019-12-31 15:29 | Electrocardiogram Report ---
Test Reason : Blood Pressure : / mmHG Vent. Rate : 104 BPM Atrial Rate : 104 BPM P-R Int : 140 ms QRS Dur : 088 ms QT Int : 328 ms P-R-T Axes : 082 088 063 degrees QTc Int : 431 ms Sinus tachycardia Biatrial enlargement Incomplete right bundle branch block Possible Right ventricular hypertrophy Abnormal ECG When compared with ECG of 29-MAY-2018 03:08, No significant change was found Confirmed by Eb Mccall ([id number]) on 12/31/2019 3:29:47 PM Referred By: REFERRED SELF Confirmed By:Rick Mccall
--- NOTE | 2019-12-31 16:46 | History & Physical Report ---
Date of Service December 31, 2019 Assessment & Plan (1) Proctitis: Peyman Nolan is a 49y/o M w/ PMH with PMH of T5 paralysis, neurogenic bladder, SBO in November 2019 who presented to the ED with a chief complaint of constipation. He was having apprehension to eat/drink for 4 days because of fea r of worsening suspected SBO. CT Abd/Pelvis showed severe proctitis. - GI Consulted and saw patient in ED with plan for colonscopy to help determine etiology of constipation and proctitis. - Will hold Eliquis. - Clear fluid diet then NPO at midnight. - Will order AM labs for to correct any potential electrolytes as needed. - Currently no indication for antibiotic use. DVT ppx: Holding Elliquis for procedure, will order SCDs FENGI: Clear fluids then NPO at midnight, NSS @ 120ml/hr Code: DNR/DNI Dispo: Obs, med surg (2) Paraplegia: from T5 spinal cord injury appropriate nursing care to prevent pressure ulcers straight cath for neurogenic bladder follow UTI sample as collected Continue with Baclofen 20mg PO BID (3) T5 spinal cord injury: as above (4) History of constipation: numerous medicaitons and also with digital stimulation. will hold home meds since will be performing bowel prep. No SBO was seen on imaging in ED. (5) History of small bowel obstruction: Seen here for SBO in November 2019. No SBO was seen on imaging in ED. History of Present Illness Chief Complaint: Constipation Primary Care Provider: Viki Alvarado DO Peyman Nolan is a 49y/o M w/ PMH with PMH of T5 paralysis, neurogenic bladder, SBO in November 2019 who presented to the ED with a chief complaint of constipation. He was having apprehension to eat/drink for 4 days because of fear of worsening suspected SBO as he notes he had constipation. CT Abd/Pelvis showed severe proctitis. He notes he had no decreased appetite, no fever, no chills, no dyspepsia, no nausea, no vomiting. He states he was having small soft BMs throughout the week then had no bowel movement yesterday. He notes he is on 4 different medications and has a bowel regimen consisting of digital stimulation but denies overdoing any digital stimulation. He does note some blood in stool this weak. Allergies Allergy/AdvReac Type Severity Reaction Status Date / Time Sulfa (Sulfonamide Allergy Mild Unknown Verified 12/31/19 15:55 Antibiotics) Home Medications Home Medications Medication Instructions Recorded Confirmed Type bisacodyl [Dulcolax (bisacodyl)] 5 mg PO DAILY PRN 04/07/18 12/31/19 History calcium polycarbophil [FiberCon] 1,250 mg PO BID 04/07/18 12/31/19 History multivitamin 1 tab PO DAILY 04/07/18 12/31/19 History apixaban 5 mg tablet 5 mg PO BID #180 tab 06/25/19 12/31/19 Rx oxybutynin chloride 10 mg 10 mg PO BID #180 tab 12/04/19 12/31/19 Rx tablet,extended release 24 hr polyethylene glycol 3350 [Miralax] 17 gm PO DAILY #100 ea 12/10/19 12/31/19 Rx baclofen 20 mg tablet 20 mg PO BID #60 tab 12/27/19 12/31/19 Rx Jerrica- Colace 2 tab PO BID 12/31/19 12/31/19 History Past Med/Surg History Medical History BILL (acute kidney injury) (Resolved) Constipation (Resolved) Ground glass opacity present on imaging of lung (Chronic) History of DVT (deep vein thrombosis) (Chronic) Muscle spasm (Chronic) Neurogenic bladder (Chronic) Paraplegia (Chronic) Peripheral vascular disease (Chronic) SBO (small bowel obstruction) (Resolved) Sepsis (Resolved) Stage II pressure ulcer of buttock (Resolved) T5 spinal cord injury (Chronic) UTI (urinary tract infection) (Chronic) UTI (urinary tract infection) (Resolved) Surgical History History of back surgery Family History Other Medical history non-contributory Social History Preferred Language: Maltese Communication Ability: Effective Visual Impairment: No Limitations Mail Handler Sorter Required: No Beliefs That Will Affect Care: None marital status: Single Current Living Situation: Alone current occupational status: disabled Feels Safe at Home: Yes Safety Concerns: Feels Safe At This Time Smoking Status: Never smoker Tobacco Type: smokeless tobacco ; Cigarettes Per Day: 20 ; Second Hand Exposure: No ; Hx Alcohol Use: No Hx Substance Use: No Review of Systems Review of Systems: All systems reviewed & are unremarkable except as noted in HPI & below Constitutional: no fever and no chills Eyes: no spots in vision and no worsening vision Ear, Nose, Mouth, Throat: no nasal congestion and no sore throat Respiratory: no cough and no dyspnea Cardiovascular: no chest pain and no syncope Gastrointestinal: + constipation; no abdominal pain, no heartburn, no nausea and no vomiting Musculoskeletal: no body aches Integumentary: no rash and no new lesions Neurologic: + numbness (chronic from mid chest inferiorly); no localized weakness Physical Exam Constitutional: cooperative and comfortable Eyes: PERRL, conjunctivae normal, anicteric sclerae ENMT: external ear and nose normal, oropharynx normal Neck: normal visual inspection and trachea midline Respiratory: normal respiratory effort, lungs clear to auscultation Cardiovascular: RRR, no murmur, no edema Gastrointestinal (Abdomen): Percussion/Palpation: abdomen soft; abdomen nontender, no guarding and abdomen not rigid Skin: no rashes, warm and dry Neurologic: awake moves bilateral upper extremities Psychiatric: Orientation: alert and oriented x 3 Results & Data Results & Data ([facility]) Vital Signs (Past 12 Hours) Vital Signs Temp Pulse Pulse Resp BP BP Pulse Ox 12/31/19 14:35 103 H 22 122/80 98 12/31/19 12:20 36.4 C L 122 H 20 104/[address] Abd/Pelvis 1. Findings suggest a severe proctitis. Clinical correlation will be essential. Consider nonemergent follow-up with colonoscopy for further assessment. 2. There is no bowel obstruction. 3. The bladder wall is thickened and pericholecystic inflammation is identified. This may be related to adjacent inflammation of the rectum. Correlation with urinalysis will be required. Medications Administered 1L NSS in ED Code Status & VTE Plan Code Status DNR/DNI VTE Prophylaxis Plan VTE Prophylaxis will be ordered: Yes Supervising Physician Co-Signing Physician Notes Patient seen and examined independently of PGY-2 Dr. Parsons. Agree with history, exam findings, assessment and plan of care as outlined by Dr. Parsons. in brief, Mr. Kerr is a 49 year old male with T5 paraplegia admitted with severe proctocolitis. He came to the ED with concerns about changes in his bowel habits and decreased appetite, concerned for SBO. In the ED, a CT abdomen/pelvis showed that there was no SBO, but there was marked rectal wall thickening with perirectal inflammation, prominent perirectal lymph nodes measuring up to 9mm; thickened bladder wall. He was given IVFs due to concerns for dehydration and Dr. Rosenthal (GI) was consulted. On exam, no abdominal pain (although due to spinal cord injury, does not feel pain, just pressure). 1. proctitis. GI consulted. Bowel prep tonight. Clears until midnight, then NPO. IVFs. Will place joseph as patient does self cath and with anticipate large st ool amount this evening, he thinks having a Joseph will be easier for nursing. Dispo: pending colonoscopy with GI. Resident Activity Tracking Resident Involvement: Resident Care Provided Care Provided: Adult Hospital Medicine
--- NOTE | 2019-12-31 16:59 | Gastrointestinal Consultation ---
Date of Consultation December 31, 2019 Assessment & Plan (1) Proctitis: Differential includes stercoral proctitis due to constipation issues given underlying paralysis vs infectious vs inflammatory vs other. -Bowel prep & fleet enemas x 2 -NPO after midnight -Colonoscopy on 01/01/20 -Pending scope, will likely need a better plan moving forward for outpatient constipation management including prescription meds Thank you for allowing us to participate in the care of this patient. If you marc uld have any further questions or concerns, do not hesitate to contact us at extension [phone] or [phone]. Supervising Physician Co-Signing Physician Notes Agree with SARAH Puentes Abd: Soft, NT, ND Continue current therapy Proceed with Colonoscopy in the AM following bowel prep History of Present Illness Reason for Consultation: Proctitis History of Present Illness Patient is a 49 yo male with a spinal cord injury at the T5 level resulting in paralysis who presents to the ED with incomplete evacuation of his stool. He has struggled over the past 6 months with an inability to completely evacuate his bowels. He is utilizing digital stimulation, Miralax, Senna, Dulcolax, Colace & Fibercon tablets. He reports intermittent BRBPR. He has never had a colonoscopy. He had a CT scan in November suggestive of a possible SBO from abdominal surgery/adhesions. He denies pertinent family history. His labs in the ED do not indicate any acute concerns. A CT scan in the ED indicated a severe proctitis. Allergies Allergy/AdvReac Type Severity Reaction Status Date / Time Sulfa (Sulfonamide Allergy Mild Unknown Verified 12/31/19 15:55 Antibiotics) Home Medications Home Medications Medication Instructions Recorded Confirmed Type bisacodyl [Dulcolax (bisacodyl)] 5 mg PO DAILY PRN 04/07/18 12/31/19 History calcium polycarbophil [FiberCon] 1,250 mg PO BID 04/07/18 12/31/19 History multivitamin 1 tab PO DAILY 04/07/18 12/31/19 History apixaban 5 mg tablet 5 mg PO BID #180 tab 06/25/19 12/31/19 Rx oxybutynin chloride 10 mg 10 mg PO BID #180 tab 12/04/19 12/31/19 Rx tablet,extended release 24 hr polyethylene glycol 3350 [Miralax] 17 gm PO DAILY #100 ea 12/10/19 12/31/19 Rx baclofen 20 mg tablet 20 mg PO BID #60 tab 12/27/19 12/31/19 Rx Jerrica- Colace 2 tab PO BID 12/31/19 12/31/19 History Patient History Medical History BILL (acute kidney injury) (Resolved) Constipation (Resolved) Ground glass opacity present on imaging of lung (Chronic) History of DVT (deep vein thrombosis) (Chronic) Muscle spasm (Chronic) Neurogenic bladder (Chronic) Paraplegia (Chronic) Peripheral vascular disease (Chronic) SBO (small bowel obstruction) (Resolved) Sepsis (Resolved) Stage II pressure ulcer of buttock (Resolved) T5 spinal cord injury (Chronic) UTI (urinary tract infection) (Chronic) UTI (urinary tract infection) (Resolved) Surgical History History of back surgery Family History Other Medical history non-contributory Social History Preferred Language: Polish Communication Ability: Effective Visual Impairment: No Limitations Bird Sitter Required: No Beliefs That Will Affect Care: None marital status: Single Current Living Situation: Alone current occupational status: disabled Feels Safe at Home: Yes Safety Concerns: Feels Safe At This Time Smoking Status: Never smoker Tobacco Type: smokeless tobacco ; Cigarettes Per Day: 20 ; Second Hand Exposure: No ; Hx Alcohol Use: No Hx Substance Use: No Review of Systems Constitutional: no fever and no chills Eyes: no problem reported Ear, Nose, Mouth, Throat: no problem reported Respiratory: no cough and no dyspnea Cardiovascular: no chest pain Gastrointestinal: + constipation and + blood in stools; no abdominal pain and no diarrhea/loose stools Musculoskeletal: no problem reported Neurologic: + paralysis Psychiatric: no problem reported Physical Exam Constitutional: WD/WN, vitals as above Eyes: PERRL, conjunctivae normal, anicteric sclerae ENMT: external ear and nose normal, oropharynx normal Neck: normal visual inspection Respiratory: normal respiratory effort, lungs clear to auscultation Cardiovascular: RRR, no murmur, no edema Gastrointestinal (Abdomen): normal bowel sounds, soft, nontender, no hepatosplenomegaly Musculoskeletal: paralysis Skin: no rashes, warm and dry Psychiatric: A+Ox3, euthymic affect Results & Data ([facility]) Vital Signs (Past 12 Hours) Vital Signs Temp Pulse Pulse Resp BP BP Pulse Ox 12/31/19 14:35 103 H 22 122/80 98 12/31/19 12:20 36.4 C L 122 H 20 104/69 97 PG Care Time/CCT Total # of Minutes Spent Total Time Spent with Patient: Total time spent is greater than 50% in coordination of care (as documented) at patient's floor/unit and/or counseling patient: Coding Level of Care Code 25930 Office/OBS Consult Lvl 4 Diagnoses Proctitis K62.89
[2019-12-31] MEDS ORDERED: ONDANSETRON INJ 2 MG/ML 2 ML VIAL IV PRN (18:23)
[2019-12-31] MEDS: SODIUM CHLORIDE 0.9% 1000ML 1,000 ML IV SCH (18:58)
[2019-12-31] MEDS: BACLOFEN 20 MG TAB PO SCH (21:33)
[2019-12-31] MEDS: LAVAGE SOLUTION 4000ML PO SCH (21:34)
[2020-01-01 01:31] LABS: Appearance Urine Cloudy (Clear); Bacteria Urine Automated Negative (Negative); Bilirubin Urine Negative (Negative); Blood Urine 3+ (Negative); Color Urine Yellow; Epithelial Cell Urine Auto 0-5 /lpf (0-5); Glucose Urine UA Negative (Negative); Ketones Urine 4+ (Negative); Leukocyte Esterase Urine 2+ (Negative); Nitrite Urine Negative (Negative); Protein Urine 1+ (Negative); RBC Urine Automated >30 /hpf (0-4); Specific Gravity Urine 1.021 (1.000-1.030); Urobilinogen Urine Negative (Negative); WBC Urine Automated >30 /hpf (0-5)
[2020-01-01] MEDS: SODIUM CHLORIDE 0.9% 1000ML 1,000 ML IV SCH (03:13)
[2020-01-01] MEDS: LAVAGE SOLUTION 4000ML PO SCH (03:14)
[2020-01-01 05:45] LABS: Basophils # (auto) 0.02 K/uL (0-0.2); Basophils % (auto) 0.3 %; Eosinophils # (auto) 0.11 K/uL (0-0.5); Eosinophils % (auto) 1.6 %; Hematocrit (blood only) 35.6 % (42-52); Immature Granulocytes # (auto) 0.02 K/uL (0.00-0.02); Immature Granulocytes % (auto) 0.3 %; Lymphocytes # (auto) 1.49 K/uL (1.2-3.4); Lymphocytes % (auto) 21.3 %; Mean Corpuscular Hgb Conc 33.7 g/dL (32-36); Mean Platelet Volume 9.2 fL (7.4-10.4); Monocytes # (auto) 0.71 K/uL (0.11-0.59); Monocytes % (auto) 10.1 %; Neutrophils # (auto) 4.66 K/uL (1.4-6.5); Neutrophils % (auto) 66.4 %; Platelet Count 188 K/uL (130-400); RDW Coefficient of Variation 14.8 % (11.5-14.5); RDW Standard Deviation 46.1 fL (36.4-46.3); Red Blood Count 4.14 M/uL (4.7-6.1); White Blood Count 7.01 K/uL (4.8-10.8)
[2020-01-01 06:34] LABS: Albumin Level 3.3 gm/dl (3.4-5.0); BUN Creatinine Ratio 13.6 (10-20); Calcium 8.2 mg/dl (8.5-10.1); Creatinine Clr Calc Pharmacy 110.9 ml/min; Est GFR (African American) 124.5; Est GFR (Non-African American) 107.4; Globulin 3.3 gm/dl (2.5-4.0); Magnesium 1.8 mg/dl (1.8-2.4); Phosphorus 2.2 mg/dl (2.5-4.9); Total Protein 6.6 gm/dl (6.4-8.2)
[2020-01-01] MEDS ORDERED: POTASSIUM PHOS 3 MMOL/1 ML INFUSION IV STA (06:39)
[2020-01-01] MEDS ORDERED: POTASSIUM PHOSPHATE 9 MMOL in SODIUM CHLORIDE 0.9% 250 ML IV ONE (07:00)
--- NOTE | 2020-01-01 07:58 | Hospitalist Progress Note ---
Date of Service January 01, 2020 Assessment & Plan (1) Proctitis: Peyman Nolan is a 49y/o M w/ PMH with PMH of T5 paralysis, neurogenic bladder, SBO in November 2019 who presented to the ED with a chief complaint of constipation. He was having apprehension to eat/drink for 4 days because of fea r of worsening suspected SBO. CT Abd/Pelvis showed severe proctitis. - GI Consulted and saw patient in ED with plan for colonoscopy today to help determine etiology of constipation and proctitis. - Will hold Eliquis for procedure, okay to restart afterwards. - Will order AM labs for to correct any potential electrolytes as needed. - Currently no indication for antibiotic use. No bacteria in UA. - Patient status from Observation changed to inpatient as patient requires colonoscopy for severe proctitis and diagnostic workup for reoccurring constipation. - Considerations for butt paste to help prevent skin breakdown from acidic stools on alkaline skin. 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 will hold home meds since will be performing bowel prep. No SBO was seen on imaging in ED. (6) History of small bowel obstruction: Seen here for SBO in November 2019. No SBO was seen on imaging in ED. Admission and Anticipated Discharge Date Admission Date: December 31, 2019 Supervising Physician Co-Signing Physician Notes Patient seen and examined with PGY-2 Dr. Parsons. Agree with history, exam findings, assessment and plan of care as outlined by Dr. Parsons. in brief, Mr. Kerr is a 49 year old male with T5 paraplegia admitted with severe proctocolitis. He completed part of the Go-Lytely colon prep last night. Reports that it tastes like fish. Had multiple soft/liquid bowel movements overnight. He did undergo colonoscopy with Dr. Rosenthal this morning. VS, labs and nursing notes reviewed. 1. proctitis. Colonoscopy today revealed a 5mm polyp in the sigmoid colon that was snared, multiple small ulcers in the rectum as well. Appreciate GI recommendations for how further care. Dispo: pending recommendations from GI. Could possible be d/c'ed later this evening or tomorrow. Subjective Peyman notes only being able to drink a little less than half the go-lytely because it tasted "like a fish." He notes that he had numerous large BMs overnight. No new complaints. He remains NPO for colonoscopy today. No acute events reported overnight. Physical Exam Constitutional: cooperative and comfortable Eyes: PERRL, conjunctivae normal, anicteric sclerae ENMT: external ear and nose normal, oropharynx normal Neck: normal visual inspection and trachea midline Respiratory: normal respiratory effort, lungs clear to auscultation Cardiovascular: RRR, no murmur, no edema Gastrointestinal (Abdomen): Inspection/Auscultation: normal bowel sounds Percussion/Palpation: abdomen soft; abdomen nontender, no guarding and abdomen not rigid Skin: no rashes, warm and dry Neurologic: awake Psychiatric: Orientation: alert and oriented x 3 Results & Data Results & Data ([facility]) Vital Signs (Past 12 Hours) Vital Signs Temp Pulse Resp BP Pulse Ox 01/01/20 07:51 36.7 C 18 115/56 L 93 12/31/19 23:25 36.7 C 101 H 18 158/89 H 99 Resident Activity Tracking Resident Involvement: Resident Care Provided Care Provided: Adult [facility]
[2020-01-01] MEDS ORDERED: ZINC OXIDE 16% 45 APPLN, HYDROCORTISONE 1% 45 APPLN, ALUMINUM/MAGNESIUM SUSP 15 ML, BAR... TOP PRN (08:32)
[2020-01-01] MEDS: BACLOFEN 20 MG TAB PO SCH (08:38)
[2020-01-01] MEDS ORDERED: Nursing to Pharmacy Communication SCH (09:15)
[2020-01-01] MEDS ORDERED: SOD PHOSPHATE/SOD BIPHOSPHATE ENEMA 132 ML BTL PR PRN ×2 (09:16→16:39)
[2020-01-01] MEDS ORDERED: SOD PHOSPHATE/SOD BIPHOSPHATE ENEMA 132 ML BTL PR SCH (09:25)
--- NOTE | 2020-01-01 09:25 | History & Physical Bridge Note ---
Date of Service January 01, 2020 History & Physical Bridge Note I have examined the patient, reviewed the History & Physical and in the interval since the performance of the History & Physical I have noted the following changes of clinical significance: no changes noted subjectively or on physical exam. Patient has been completing his bowel prep and will complete 2 enemas prior to his procedure. Proceed with colonoscopy this AM. Supervising Physician Co-Signing Physician Notes Agree with SARAH Puentes Abd: Soft, NT, ND Bowel prep tolerated Proceed with Colonoscopy
[2020-01-01] MEDS ORDERED: ATROPINE SULFATE 0.1 MG/ML 10ML SYR IV PRN (11:15)
[2020-01-01] MEDS ORDERED: ePHEDrine sulfate 50 MG/ML AMP IV PRN (11:15)
[2020-01-01] MEDS ORDERED: ONDANSETRON INJ 2 MG/ML 2 ML VIAL IV PRN (11:15)
--- NOTE | 2020-01-01 11:15 | Anesthesiology Consultation ---
Date of Service January 01, 2020 Assessment & Plan ASA ASA3 Proposed Anesthesia Anesthesia Type: MAC Risk / Benefits Reviewed With: PT / POA / Parent / Guardian, Accepts Plan and Informed Consent Obtained History Surgery Operation Date: 01/01/20 16:30 Proposed Procedures p Colonoscopy Dr. Galo Rosenthal, DO Height/Weight Height: 6 ft Weight: 65.5 kg Allergies Allergy/AdvReac Type Severity Reaction Status Date / Time Sulfa (Sulfonamide Allergy Mild Unknown Verified 12/31/19 15:55 Antibiotics) Medications Home Medications Medication Instructions Recorded Confirmed Last Taken bisacodyl [Dulcolax (bisacodyl)] 5 mg PO DAILY PRN 04/07/18 12/31/19 Unknown calcium polycarbophil [FiberCon] 1,250 mg PO BID 04/07/18 12/31/19 05/28/18 multivitamin 1 tab PO DAILY 04/07/18 12/31/19 05/28/18 apixaban 5 mg tablet 5 mg PO BID #180 tab 06/25/19 12/31/19 12/30/19 oxybutynin chloride 10 mg 10 mg PO BID #180 tab 12/04/19 12/31/19 12/30/19 tablet,extended release 24 hr polyethylene glycol 3350 [Miralax] 17 gm PO DAILY #100 ea 12/10/19 12/31/19 Unknown baclofen 20 mg tablet 20 mg PO BID #60 tab 12/27/19 12/31/19 12/30/19 Jerrica- Colace 2 tab PO BID 12/31/19 12/31/19 Unknown Active Medications Generic Name Dose Route Start Last Admin Trade Name Astonq PRN Reason Stop Dose Admin Baclofen 20 mg 12/31/19 21:00 01/01/20 08:38 Lioresal PO 01/30/20 20:59 20 mg BID YONIS Administration Sodium Chloride 1,000 mls @ 120 mls/hr 12/31/19 18:45 01/01/20 10:46 Nss 1000ml IV 01/01/20 11:24 0 mls/hr .[id number] YONIS Infusion Sodium Biphosphate/Sodium Phosphate 132 ml 01/01/20 09:16 01/01/20 09:24 Fleet Enema FL 01/31/20 09:15 132 ml DAILY PRN Administration Constipation NPO Date Last Intake of Fluids: 12/31/19 Time Last Intake of Fluids: 23:59 Last Intake of Fluids Comment: ice chips Date Last Intake of Solids: 12/27/19 Time Last Intake of Solids: 08:00 Past Medical History Medical History BILL (acute kidney injury) (Resolved) Constipation (Resolved) Ground glass opacity present on imaging of lung (Chronic) History of DVT (deep vein thrombosis) (Chronic) Muscle spasm (Chronic) Neurogenic bladder (Chronic) Paraplegia (Chronic) Peripheral vascular disease (Chronic) SBO (small bowel obstruction) (Resolved) Sepsis (Resolved) Stage II pressure ulcer of buttock (Resolved) T5 spinal cord injury (Chronic) UTI (urinary tract infection) (Chronic) UTI (urinary tract infection) (Resolved) Exercise / Class Metabolic Activity II 4-5 Yardwork/Stairs/Walk up hill Past Family History Family History Other Medical history non-contributory Past Surgical History Surgical History History of back surgery Past Anesthesia History No Hx of Anesthesia Complications and No Family Hx of Anesthesia Complications History of PONV No Hx of PONV and No Hx of Motion Sickness Social History Smoking Status: Never smoker tobacco type: smokeless tobacco Smoking cigarettes per day: 20 Hx Alcohol Use: No Hx Substance Use: No Review of Systems denies fever/cough/ colds/ chest pain/ SOB/ CATHY Constitutional: no fever and no chills Respiratory: no cough and no dyspnea denies CATHY Cardiovascular: no chest pain and no dyspnea on exertion Physical Exam Vital Signs Last Vital Signs Temp 36.9 C 01/01/20 11:07 Pulse 80 01/01/20 11:07 Resp 18 01/01/20 11:07 BP 121/75 01/01/20 11:07 Pulse Ox 99 01/01/20 11:07 ENMT Mouth: no TMJ abnormality and no dentition abnormality Thyromental Distance: > or= 3.5 Finger Breadths Mallampati Class: II Neck neck extension not limited Respiratory normal respiratory effort; no respiratory distress Auscultation: lungs clear to auscultation bilaterally Cardiovascular Rate/Rhythm: regular rate and regular rhythm Psychiatric Orientation: alert and oriented x 3 Testing Laboratory Results 01/01/20 05:24 01/01/20 05:24 Urine Color Yellow 01/01/20 01:15 Urine Appearance Cloudy (Clear) A 01/01/20 01:15 Urine pH 5.0 (4.5-7.5) 01/01/20 01:15 Ur Specific Ulen 1.021 (1.000-1.030) 01/01/20 01:15 Urine Protein 1+ (Negative) H 01/01/20 01:15 Urine Glucose (UA) Negative (Negative) 01/01/20 01:15 Urine Ketones 4+ (Negative) H 01/01/20 01:15 Urine Nitrite Negative (Negative) 01/01/20 01:15 Ur Leukocyte Esterase 2+ (Negative) H 01/01/20 01:15 Urine WBC (Auto) >30 /hpf (0-5) H 01/01/20 01:15 Urine RBC (Auto) >30 /hpf (0-4) H 01/01/20 01:15 U Hyaline Cast (Auto) 5-10 /lpf (0-5) H 01/01/20 01:15 U Epithel Cells (Auto) 0-5 /lpf (0-5) 01/01/20 01:15 Urine Bacteria (Auto) Negative (Negative) 01/01/20 01:15
[2020-01-01] MEDS ORDERED: PROPOFOL IV EMULSION 10 MG/ML 20 ML VIAL IV ONE ×2 (11:52)
[2020-01-01] MEDS ORDERED: LIDOCAINE HCL 2% 2 ML VIAL/AMP(20MG/ML) INFIL ONE (11:52)
--- NOTE | 2020-01-01 12:37 | GI REPORT ---
Patient Name: Peyman Nolan Procedure Date: 01/01/2020 11:38 AM Date of : 1970 Admit Type: Inpatient Age: 49 Gender: Male Attending MD: Tony Rosenthal DO Procedure: Colonoscopy Providers: Tony Rosenthal DO Referring MD: Blas Almodovar Indications: Abnormal CT of the GI tract Medicines: Monitored Anesthesia Care Complications: No immediate complications. Estimated Blood Loss: Estimated blood loss: none. Procedure: Pre-Anesthesia Assessment: - Prior to the procedure, a History and Physical was performed, and patient medications and allergies were reviewed. The patient's tolerance of previous anesthesia was also reviewed. The risks and benefits of the procedure and the sedation options and risks were discussed with the patient. All questions were answered, and informed consent was obtained. Prior Anticoagulants: The patient has taken no previous anticoagulant or antiplatelet agents. ASA Grade Assessment: III - A patient with severe systemic disease. After reviewing the risks and benefits, the patient was deemed in satisfactory condition to undergo the procedure. After I obtained informed consent, the scope was passed under direct vision. Throughout the procedure, the patient's blood pressure, pulse, and oxygen saturations were monitored continuously. The Colonoscope was introduced through the anus and advanced to the terminal ileum. The colonoscopy was performed without difficulty. The patient tolerated the procedure well. The quality of the bowel preparation was good. The terminal ileum, ileocecal valve, appendiceal orifice, and rectum were photographed. Findings: The perianal and digital rectal examinations were normal. A 5 mm polyp was found in the sigmoid colon. The polyp was sessile. The polyp was removed with a hot snare. Resection and retrieval were complete. A few twenty mm ulcers were found in the rectum. No bleeding was present. Impression: - One 5 mm polyp in the sigmoid colon, removed with a hot snare. Resected and retrieved. - A few ulcers in the rectum. Recommendation: - Return patient to [facility] for ongoing care. - Advance diet as tolerated. - Continue present medications. - Repeat colonoscopy for surveillance based on pathology results. Tony Rosenthal DO 01/01/2020 12:36:28 PM This report has been signed electronically. Note Initiated On: 01/01/2020 11:38 AM Number of Addenda: 0 I attest to the content of the Intraoperative Record and orders documented therein, exceptions below {[id number]}
--- NOTE | 2020-01-01 13:11 | Anesthesiology Progress Note ---
Date of Service January 01, 2020 Anesthesia Post Procedure Vital Signs Vital Signs: Temp Pulse Resp BP Pulse Ox 01/01/20 12:53 62 16 120/70 98 01/01/20 12:41 61 16 122/62 97 01/01/20 12:23 67 16 97/57 L 99 01/01/20 11:07 36.9 C 80 18 121/75 99 01/01/20 07:51 36.7 C 18 115/56 L 93 12/31/19 23:25 36.7 C 101 H 18 158/89 H 99 12/31/19 18:18 36.8 C 108 H 18 120/74 98 12/31/19 14:35 103 H 22 122/80 98 Transfer of Care Handoff Completed per policy Notes Mental Status: alert / awake / arousable and participated in evaluation Patient Amnestic to Procedure: Yes Nausea / Vomiting: adequately controlled Pain: adequately controlled Airway Patency, RR, SpO2: stable & adequate BP & HR: stable & adequate Hydration State: stable & adequate Anesthetic Complications: no major complications apparent and Pt Satisfied with anesthetic care
[2020-01-01] MEDS ORDERED: bisacodyL 5 MG TABEC PO PRN (13:29)
--- NOTE | 2020-01-01 17:18 | Discharge Summary ---
Date of Service January 01, 2020 Admission HPI Per Admitting Provider Peyman Nolan is a 49y/o M w/ PMH with PMH of T5 paralysis, neurogenic bladder, SBO in November 2019 who presented to the ED with a chief complaint of constipation. He was having apprehension to eat/drink for 4 days because of fear of worsening suspected SBO as he notes he had constipation. CT Abd/Pelvis showed severe proctitis. He notes he had no decreased appetite, no fever, no chills, no dyspepsia, no nausea, no vomiting. He states he was having small soft BMs throughout the week then had no bowel movement yesterday. He notes he is on 4 different medications and has a bowel regimen consisting of digital sti mulation but denies overdoing any digital stimulation. He does note some blood in stool this weak. Principal Diagnosis Proctitis Discharge Exam Constitutional cooperative and comfortable Eyes PERRL, conjunctivae normal, anicteric sclerae ENMT external ear and nose normal, oropharynx normal Neck normal visual inspection and trachea midline Respiratory normal respiratory effort, lungs clear to auscultation Cardiovascular RRR, no murmur, no edema Gastrointestinal (Abdomen) Inspection/Auscultation: normal bowel sounds Percussion/Palpation: abdomen soft; abdomen nontender, no guarding and abdomen not rigid Skin no rashes, warm and dry Neurologic awake Psychiatric Orientation: alert and oriented x 3 Discharge Data Allergies Allergy/AdvReac Type Severity Reaction Status Date / Time Sulfa (Sulfonamide Allergy Mild Unknown Verified 12/31/19 15:55 Antibiotics) Consultations 12/31/19 15:57 ED Decision to Admit Stat 12/31/19 18:23 Consult Case Management - Discharge Planning Routine Consult Gastroenterology Routine 01/01/20 15:34 Consult [facility] underwriting intern Routine Procedures Performed Operation Date: 01/01/20 16:30 Actual Procedures p Colonoscopy Polypectomy - Tony Haney Case, DO Ordered Studies 12/31/19 13:31 CT abd pelvis wo con Stat Hospital Course (1) Proctitis: Peyman Nolan is a 49y/o M w/ PMH with PMH of T5 paralysis, neurogenic bladder, SBO in November 2019 who presented to the ED with a chief complaint of constipation. He was having apprehension to eat/drink for 4 days because of fear of worsening suspected SBO. CT Abd/Pelvis showed severe proctitis. GI did a colonoscopy to help determine etiology of constipation and proctitis. He had a bowel prep the night before. This showed that the perianal and digital rectal examinations were normal. A 5 mm polyp was found in the sigmoid colon, which was removed. A few 20 mm ulcers were found in the rectum. No bleeding was present. Below instructions on discharge: -please follow up with your PCP within one week for normal hospital follow up. This will be set up for you -you may advance your diet as tolerated back to normal -GI may possibly repeat colonoscopy for surveillance based on pathology results. They will be in contact with you about this -resume home meds on discharge -you will take Miralax twice a day on discharge. To help with the taste, you may mix with crystal light flavour powder Patient requested discharge home and was stable for discharge. 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 will hold home meds since will be performing bowel prep. No SBO was seen on imaging in ED. (6) History of small bowel obstruction: Seen here for SBO in November 2019. No SBO was seen on imaging in ED. Total Time Total Time Spent Total Time Spent (In Minutes): 35 Total Time Includes: Examination of the Patient, Discharge Planning, Medication Reconciliation and Communication With Other Providers Discharge Plan Discharge Items Patient Disposition: Home - Self-Care Reason For Visit: CONSTIPATION Discharge Diagnosis: proctitis Condition on Discharge: Good Activity: Per Instructions section Non-emergency contact: Primary Care Provider Call non-emergency contact if: you have any medication questions, your symptoms worsen, your pain is not controlled and your temperature is above 101.5 Follow-up/Referrals: Viki Alvarado DO [Primary Care Provider] - (Office will call patient for appointment within the next week. ) Diet: Regular Addtl Attending Provider Instructions: You were admitted with concerns of constipation and apprehension to eat/drink. We got imaging that showed severe proctitis. We consulted GI who did a colonoscopy to help determine etiology of constipation and proctitis. This showed that the perianal and digital rectal examinations were normal. A 5 mm polyp was found in the sigmoid colon, which was removed. A few 20 mm ulcers were found in the rectum. No bleeding was present. Please follow the below instructions on discharge: -please follow up with your PCP within one week for normal hospital follow up. This will be set up for you -you may advance your diet as tolerated back to normal -GI may possibly repeat colonoscopy for surveillance based on pathology results. They will be in contact with you about this -resume home meds on discharge -you will take Miralax twice a day on discharge. To help with the taste, you may mix with crystal light flavour powder Pending Studies at Discharge: No Stand-Alone Forms: [facility] Triptrotting, Smoking Cessation Medications and DC Order Prescriptions: Continued Eliquis 5 mg tablet 5 mg PO BID Qty: 180 RF: 1 oxybutynin chloride 10 mg tablet extended release 24hr 10 mg PO BID Qty: 180 RF: 1 baclofen 20 mg tablet 20 mg PO BID Qty: 60 RF: 1 multivitamin Tablet 1 tab PO DAILY RF: 0 calcium polycarbophil [FiberCon] 625 mg Tablet 1,250 mg PO BID RF: 0 bisacodyl [Dulcolax (bisacodyl)] 5 mg Tablet,Delayed Release (Dr/Ec) 5 mg PO DAILY PRN (Reason: Constipation) RF: 0 Jerrica- Colace 2 tab PO BID RF: 0 Changed polyethylene glycol 3350 [Miralax] 17 gram powder in packet 17 gm PO BID Qty: 100 RF: 0 Discharge Orders: Discharge Order (Routine); Ordered 01/01/20 Ordered By: Sven Marie Admission Data Admit Date/Time: 01/01/20 08:16 Attending Provider: Blas Almodovar Admit Provider: Quirino Parsons Primary Care Provider: Viki Alvarado Other Providers: Prashanth Salguero Dustin G. Other Interventions: Discharge Summary Assessment (RN) Last Done: 01/01/20 17:20 DC Date/Time DO NOT enter until pt leaves facility: 01/01/20 17:51 Supervising Physician Co-Signing Physician Notes Patient seen and examined with PGY-2 Dr. Parsons. Agree with history, exam findings, assessment and plan of care as outlined by Dr. Parsons. in brief, Mr. Kerr is a 49 year old male with T5 paraplegia admitted with severe proctocolitis, underwent colonoscopy with DR. Rosenthal. C-scope showed 5mm polyp in the sigmoid colon that was snared, multiple small ulcers consistent with sterocolitis. Will be discharged on miralax BID. Titrate bowel regimen per outpatient PCP. I personally spent 35 minutes discharge planning for this patient. Resident Activity Tracking Resident Involvement: Resident Care Provided Care Provided: Adult Hospital Medicine
[2020-01-01] MEDS ORDERED: OXYBUTYNIN CHLORIDE XL 5 MG TABCR PO SCH (21:00)
[2020-01-01] MEDS ORDERED: CALCIUM POLYCARBOPHIL 625MG TAB PO SCH (21:00)
[2020-01-01] MEDS ORDERED: DOCUSATE SODIUM/SENNA 50/8.6MG TAB PO SCH (21:00)
[2020-01-01] MEDS ORDERED: APIXABAN 5 MG TABLET PO SCH (21:00)
[2020-01-02] MEDS ORDERED: POLYETHYLENE (MIRALAX) 17 GM PACK PO SCH (09:00)
[2020-01-02] MEDS ORDERED: MULTIVITAMIN TAB PO SCH (09:00)
== END 2020-01-01 17:51 | disposition home or self-care (01) | DRG 394 ==
LOC: 3N 12:12 → ED 12:12 → 3N 18:09